=== PATIENT | female | born 1965 | race Caucasian/White ===

== ENCOUNTER 2020-04-23 11:05 | Emergency (ER) | payer SELFPAY ==
--- NOTE | 2020-04-23 12:21 | RAD REPORT ---
EXAM DESCRIPTION: Danica Parr And Haylee (2 Views)04/23/2020 12:14 pm CLINICAL HISTORY: Chest pain COMPARISON: 2017 FINDINGS: The lungs appear clear of acute infiltrate. The heart is normal size. Elevation of the ri ght hemidiaphragm unchanged IMPRESSION: No acute abnormalities displayed
--- NOTE | 2020-04-23 12:22 | RAD REPORT ---
EXAM DESCRIPTION: RAD - Humerus Right - 04/23/2020 12:14 pm CLINICAL HISTORY: Right arm pain status post fall FINDINGS: No fracture is seen
--- NOTE | 2020-04-23 12:25 | RAD REPORT ---
EXAM DESCRIPTION: RAD - Elbow Right 3 View - 04/23/2020 12:14 pm CLINICAL HISTORY: Right elbow pain status post injury FINDINGS: No fracture or dislocation is seen.
[2020-04-23] MEDS ORDERED: CODEINE 30MG/APAP 300MG TAB ONE (13:11)
--- NOTE | 2020-04-23 13:11 | EDPHYS ---
Physician Documentation [facility] Name: Alize Trinidad Age: 54 yrs Sex: Female : 1965 Arrival Date: 04/23/2020 Time: 11:06 Bed 24 Private MD: ED Physician Jose Barnes HPI: 04/23 12:55 This 54 yrs old Female presents to ER via Wheelchair with complaints of Fall pm1 Injury. 12:55 Details of fall: The patient fell from an upright position, while walking. Onset: The pm1 symptoms/episode began/occurred today. Associated injuries: The patient sustained pain to right shoulder, right upper chest, and right elbow. 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 She fell forward "like a starfish" while she was carrying a toy in her right hand. Presenting with pain to right elbow, right shoulder, and right upper chest. No headache, head injury, neck pain, LOC. 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 - Social history:: Smoking status: Patient denies any tobacco usage or history of. ROS: 12:55 Constitutional: Negative for fever, chills, and weight loss, Cardiovascular: Negative pm1 for chest pain, palpitations, and edema, Respiratory: Negative for shortness of breath, cough, wheezing, and pleuritic chest pain, Abdomen/GI: Negative for abdominal pain, nausea, vomiting, diarrhea, and constipation, Back: Negative for injury and pain. 12:55 Skin: Negative for injury, rash, and discoloration, Neuro: Negative for headache, weakness, numbness, tingling, and seizure. 12:55 MS/extremity: Positive for pain, of the right lateral anterior chest and right elbow and right shoulder, Negative for deformity. Exam: 12:55 Constitutional: This is a well developed, well nourished patient who is awake, alert, pm1 and in no acute distress. Head/Face: Normocephalic, atraumatic. Neck: Trachea midline, no thyromegaly or masses palpated, and no cervical lymphadenopathy. Supple, full range of motion without nuchal rigidity, or vertebral point tenderness. No Meningismus. 12:55 Back: No spinal tenderness. No costovertebral tenderness. Full range of motion. 12:55 Chest/axilla: Inspection: normal, Palpation: tenderness, of the anterior aspect of right upper chest, that totally reproduces the patient's complaints. 12:55 Cardiovascular: Exam negative for acute changes, Rate: normal, Rhythm: regular, Pulses: no pulse deficits are appreciated. 12:55 Respiratory: Exam negative for acute changes, respiratory distress, shortness of breath. 12:55 Abdomen/GI: Inspection: obese Palpation: abdomen is soft and non-tender, in all quadrants. 12:55 Musculoskeletal/extremity: Extremities: grossly normal except: noted in the right elbow and right shoulder: tenderness, There is no evidence of deformity, swelling. 12:55 Skin: Appearance: normal except for affected area, injury, contusion(s), that are superficial, of the proximal left lopez. 12:55 Neuro: Exam negative for acute changes, Orientation: is normal, Mentation: is normal, Motor: is normal, moves all fours, Sensation: is normal, no obvious gross deficits. Vital Signs: 11:31 BP 162 / 93; Pulse 74; Resp 16 S; Temp 97.1(TE); Pulse Ox 100% on R/A; Weight 136.08 kg ca1 (R); Height 5 ft. 5 in. (165.10 cm) (R); Pain 8/10; 13:21 BP 148 / 90; Pulse 73; Resp 16 S; Pulse Ox 100% on R/A; jd3 11:31 Body Mass Index 49.92 (136.08 kg, 165.10 cm) ca1 MDM: 12:19 Patient medically screened. pm1 13:08 Data reviewed: vital signs. Data interpreted: Pulse oximetry: on room air is 100 %. pm1 Interpretation: normal. Counseling: I had a detailed discussion with the patient and/or guardian regarding: the historical points, exam findings, and any diagnostic results supporting the discharge/admit diagnosis, radiology results, the need for outpatient follow up, a family practitioner, a orthopedic surgeon, to return to the emergency department if symptoms worsen or persist or if there are any questions or concerns that arise at home. 04/23 11:39 Order name: Humerus Right XRAY; Complete Time: 12:55 ca1 04/23 11:39 Order name: Elbow Right 3 View XRAY; Complete Time: 12:55 ca1 04/23 11:39 Order name: Chest Pa And Lat (2 Views) XRAY; Complete Time: 12:55 ca1 04/23 13:05 Order name: Sling; Complete Time: 13:09 pm1 Administered Medications: 13:00 Drug: Tylenol #3 (300 mg-30 mg) 2 tabs Route: PO; jd3 13:23 Follow up: Response: Medication administered at discharge. jd3 Disposition: 15:53 Co-signature as Attending Physician, Jose Barnes MD. rn Disposition: 04/23/20 13:10 Discharged to Home. Impression: Strain of other muscles, fascia and tendons at shoulder and upper arm level, right arm, Fall on same level from slipping, tripping and stumbling, Pain in right elbow. - Condition is Stable. - Discharge Instructions: Fall Prevention in the Home, Shoulder Pain, How to Use a Sling. - Prescriptions for Tylenol- Codeine #3 300-30 mg Oral Tablet - take 2 tablets by ORAL route every 6 hours As needed; 20 tablet. - Medication Reconciliation Form, Thank You Letter, Antibiotic Education, Prescription Opioid Use form. - Follow up: Emergency Department; When: As needed; Reason: Worsening of condition. Follow up: Private Physician; When: 2 - 3 days; Reason: Recheck today's complaints, Continuance of care, Re-evaluation by your physician. - Problem is new. - Symptoms have improved. Signatures: Dispatcher [employer] EDMS Jose Barnes MD MD rn Marinas, Patrick, RONI DRYER AND WASHER MECHANIC pm1 Chalino Okeefe RN RN jd3 Ashley Storey RN RN ca1 Corrections: (The following items were deleted from the chart) 13:12 13:10 04/23/2020 13:10 Discharged to Home. Impression: Strain of muscle(s) and pm1 tendon(s) of the rotator cuff of right shoulderFall on same level from slipping, tripping and stumbling; Pain in right elbow. Condition is Stable. Forms are Medication Reconciliation Form, Thank You Letter, Antibiotic Education, Prescription Opioid Use. Follow up: Emergency Department; When: As needed; Reason: Worsening of condition. Follow up: Private Physician; When: 2 - 3 days; Reason: Recheck today's complaints, Continuance of care, Re-evaluation by your physician. Problem is new. Symptoms have improved. pm1 13:23 13:12 04/23/2020 13:10 Discharged to Home. Impression: Strain of other muscles, fascia jd3 and tendons at shoulder and upper arm level, right armFall on same level from slipping, tripping and stumbling; Pain in right elbow. Condition is Stable. Forms are Medication Reconciliation Form, Thank You Letter, Antibiotic Education, Prescription Opioid Use. Follow up: Emergency Department; When: As needed; Reason: Worsening of condition. Follow up: Private Physician; When: 2 - 3 days; Reason: Recheck today's complaints, Continuance of care, Re-evaluation by your physician. Problem is new. Symptoms have improved. pm1
--- NOTE | 2020-04-23 13:11 | ER ---
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 C/O pain on R ca1 shoulder, R elbow, R rib cage, R wrist. Denies LOC. Denies hitting head. Coronavirus screen: Client denies travel out of the [place] in the last 14 days. At this time, the client does not indicate any symptoms associated with coronavirus-19. Ebola Screen: Patient negative for fever greater than or equal to 101.5 degrees Fahrenheit, and additional compatible Ebola Virus Disease symptoms Patient denies exposure to infectious person. Patient denies travel to an Ebola-affected area in the 21 days before illness onset. No symptoms or risks identified at this time. Initial Sepsis Screen: Does the patient meet any 2 criteria? No. Patient's initial sepsis screen is negative. Does the patient have a suspected source of infection? No. Patient's initial sepsis screen is negative. Risk Assessment: Do you want to hurt yourself or someone else? Patient reports no desire to harm self or others. Onset of symptoms was April 23, 2020. 11:31 Method Of Arrival: Wheelchair ca1 11:31 Acuity: FAVIAN 4 ca1 Triage Assessment: 11:39 General: Appears in no apparent distress. uncomfortable, Behavior is calm, cooperative, ca1 appropriate for age. Pain:. Pain: Complains of pain in R shoulder, R elbow, R wrist, R ribcage Pain currently is 9 out of 10 on a pain scale. Pain began 1 hour ago. Neuro: Level of Consciousness is awake, alert, obeys commands, Oriented to person, place, time, situation. Derm: Skin is intact, is healthy with good turgor, Skin is pink, warm \T\ dry. Musculoskeletal: Circulation, motion, and sensation intact. Capillary refill < 3 seconds. 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 - Social history:: Smoking status: Patient denies any tobacco usage or history of. Screenin:20 Abuse screen: Denies threats or abuse. Nutritional screening: No deficits noted. jd3 Tuberculosis screening: No symptoms or risk factors identified. Fall Risk Fall in past 12 months (25 points). Ambulatory Aid- None/Bed Rest/Nurse Assist (0 pts). Gait- Normal/Bed Rest/Wheelchair (0 pts) Mental Status- Oriented to own ability (0 pts). Total Cintron Fall Scale indicates Low Risk Score (25-44 pts). Fall prevention measures have been instituted. Side Rails Up X 2 Placed close to Nursing Station Frequent Obs/Assesments occuring Family Present and informed to notify staff if they need to leave bedside. Assessment: 12:19 General: Appears in no apparent distress. uncomfortable, Behavior is calm, cooperative, jd3 appropriate for age. Pain: Complains of pain in right lateral anterior chest and right arm Quality of pain is described as sharp, tender. Neuro: Level of Consciousness is awake, alert, obeys commands, Oriented to person, place, time, situation. Cardiovascular: Capillary refill < 3 seconds Patient's skin is warm and dry. Respiratory: Airway is patent Respiratory effort is even, unlabored, Respiratory pattern is regular, symmetrical, Denies cough. GI: No signs and/or symptoms were reported involving the gastrointestinal system. : No signs and/or symptoms were reported regarding the genitourinary system. EENT: No signs and/or symptoms were reported regarding the EENT system. Derm: Skin is intact, Skin is dry, Skin is normal, Skin temperature is warm. Musculoskeletal: Circulation, motion, and sensation intact. Range of motion: limited in right shoulder, right elbow and right wrist. Vital Signs: 11:31 BP 162 / 93; Pulse 74; Resp 16 S; Temp 97.1(TE); Pulse Ox 100% on R/A; Weight 136.08 kg ca1 (R); Height 5 ft. 5 in. (165.10 cm) (R); Pain 8/10; 13:21 BP 148 / 90; Pulse 73; Resp 16 S; Pulse Ox 100% on R/A; jd3 11:31 Body Mass Index 49.92 (136.08 kg, 165.10 cm) ca1 ED Course: 11:06 Patient arrived in ED. ag5 11:34 Triage completed. ca1 11:35 Arm band placed on right wrist. ca1 12:14 Humerus Right XRAY In Process Unspecified. EDMS 12:14 Elbow Right 3 View XRAY In Process Unspecified. EDMS 12:14 Chest Pa And Lat (2 Views) XRAY In Process Unspecified. EDMS 12:16 Chalino Okeefe, EMILY is Primary Nurse. jd3 12:17 Kj Olsen NP is PHCP. pm1 12:17 Jose Barnes MD is Attending Physician. pm1 12:21 Patient has correct armband on for positive identification. Bed in low position. Call jd3 light in reach. Side rails up X 1. Adult w/ patient. Pulse ox on. NIBP on. 13:21 No provider procedures requiring assistance completed. Patient did not have IV access jd3 during this emergency room visit. Administered Medications: 13:00 Drug: Tylenol #3 (300 mg-30 mg) 2 tabs Route: PO; jd3 13:23 Follow up: Response: Medication administered at discharge. jd3 Outcome: 13:10 Discharge ordered by . pm1 13:21 Discharged to home ambulatory, with family. jd3 13:21 Condition: stable 13:21 Discharge instructions given to patient, family, Instructed on discharge instructions, follow up and referral plans. medication usage, Demonstrated understanding of instructions, follow-up care, medications, Prescriptions given X 1. 13:23 Patient left the ED. jd3 Signatures: Dispatcher [employer] EDMS Kj Olsen, RONI COURT RECORDER pm1 Chalino Okeefe RN RN jd3 Acob, Cheryl, RN RN ca1 Choco Alan ag5 Corrections: (The following items were deleted from the chart) 12:20 12:19 Pain: Complains of pain in right arm Quality of pain is described as sharp, jd3 tender, jd3
[2020-04-23 13:47] VITALS: TEMP 97.1; O2SAT 100
[2020-04-23 13:48] VITALS: BP 148/90
== END 2020-04-23 13:23 | disposition home or self-care (01) ==
LOC: ER 11:05
DX: S46.811A Strain of other muscles, fascia and tendons at shoulder and upper arm level, right arm, initial encounter (principal); W01.0XXA Fall on same level from slipping, tripping and stumbling without subsequent striking against object, initial encounter; Y93.89 Activity, other specified; Y92.9 Unspecified place or not applicable; Z88.0 Allergy status to penicillin; Z88.1 Allergy status to other antibiotic agents; Z88.5 Allergy status to narcotic agent; I10 Essential (primary) hypertension
CPT/HCPCS: 71046; 99284

== ENCOUNTER 2021-04-11 18:51 | Emergency (ER) | payer SELFPAY ==
[2021-04-11 20:11] LABS: Urine Blood Negative (Negative); Urine Glucose Negative (Negative); Urine Protein Negative (Negative); Urine pH 5.5 (5.0-7.0)
[2021-04-11] MEDS ORDERED: NA CHLORIDE 0.9% 500 ML ONE (20:48)
[2021-04-11] MEDS ORDERED: MORPHINE 4 MG/ML SYR ONE ×2 (20:48→21:50)
[2021-04-11] MEDS ORDERED: ONDANSETRON 4 MG/2 ML VIAL ONE (20:48)
[2021-04-11 21:02] LABS: Absolute Lymphocytes (CBC) 3.1 K/uL (0.7-4.9); Basophils % 1.2 % (0-1.3); Hematocrit 41.8 % (36.0-45.0); MPV 7.5 fL (7.6-11.3); RBC Red Blood Cell Count 4.75 M/uL (3.86-4.86)
--- NOTE | 2021-04-11 21:31 | RAD REPORT ---
EXAM DESCRIPTION: CTAbdomen Pelvis W Contrast - 04/11/2021 9:23 pm CLINICAL HISTORY: Abdominal pain. Flank pain;Abd pain COMPARISON: CT ABD PELVIS W CONTRAST dated 01/12/2014; CT ABD PELVIS W CONTRAST dated 08/13/2012 TECHNIQUE: Biphasic CT imaging of the abdomen and pelvis was performed with 100 ml non-ionic IV cont rast. All CT scans are performed using dose optimization technique as appropriate and may include automated exposure control or mA/KV adjustment according to patient size. FINDINGS: Linear subsegmental atelectasis is present in the right lung base.Cholecystectomy clips. The liver, spleen, pancreas, adrenal glands and kidneys are within normal limits. No bowel obstruction, free air, free fluid or abscess. Appendectomy. No evidence of significant lym phadenopathy. Moderate lumbar degenerative changes. IMPRESSION: No acute intra-abdominal or pelvic finding.
[2021-04-11 22:33] LABS: Albumin 2.9 g/dL (3.4-5.0); Bilirubin Direct 0.2 mg/dL (0-0.2); Bilirubin Total 0.8 mg/dL (0.2-1.0); Potassium 3.7 mmol/L (3.5-5.1); Protein, Total 6.9 g/dL (6.4-8.2)
--- NOTE | 2021-04-11 23:08 | ER ---
Nurse's Notes [facility] [place], [place] Name: Alize Trinidad Age: 55 yrs Sex: Female : 1965 Arrival Date: 04/11/2021 Time: 18:56 Bed 8 Private MD: Diagnosis: Lower abdominal pain, unspecified Presentation: 04/11 19:10 Chief complaint: Patient states: "Lower left side pain X 1 day." Pt reports pain ld1 gradually getting worse throughout the day. Coronavirus screen: At this time, the client does not indicate any symptoms associated with coronavirus-19. Ebola Screen: No symptoms or risks identified at this time. Initial Sepsis Screen: Does the patient meet any 2 criteria? No. Patient's initial sepsis screen is negative. Does the patient have a suspected source of infection? No. Patient's initial sepsis screen is negative. Risk Assessment: Do you want to hurt yourself or someone else? Patient reports no desire to harm self or others. Onset of symptoms was April 11, 2021. 19:10 Method Of Arrival: Ambulatory ld1 19:10 Acuity: FAVIAN 3 ld1 Triage Assessment: 19:13 General: Appears in no apparent distress. uncomfortable, Behavior is calm, cooperative, ld1 appropriate for age. Pain: Complains of pain in left lower quadrant Pain does not radiate. Pain currently is 7 out of 10 on a pain scale. at worst was 10 out of 10 on a pain scale. Quality of pain is described as stabbing, throbbing, Pain began 1 day ago. Is continuous. Neuro: Level of Consciousness is awake, alert, obeys commands, Oriented to person, place, time, situation. Cardiovascular: Capillary refill < 3 seconds Patient's skin is warm and dry. Respiratory: Airway is patent Respiratory effort is even, unlabored, Respiratory pattern is regular, symmetrical. GI: Abdomen is non-distended, obese, Reports lower abdominal pain. 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 - Social history:: Smoking status: Patient denies any tobacco usage or history of. Patient/guardian denies using alcohol. Screenin:24 Abuse screen: Denies threats or abuse. Nutritional screening: No deficits noted. df1 Tuberculosis screening: No symptoms or risk factors identified. Fall Risk None identified. Assessment: 23:21 General: Appears in no apparent distress. Behavior is calm, cooperative. Pain: df1 Complains of pain in left lower quadrant Pain radiates to left mid back. Neuro: No deficits noted. Cardiovascular: No deficits noted. Respiratory: Respiratory effort is even, unlabored, Respiratory pattern is regular, symmetrical, Breath sounds are clear bilaterally. GI: Abdomen is obese, Last BM was April 11, 2021. Bowel sounds present X 4 quads. Reports lower abdominal pain. 23:23 : No deficits noted. EENT: No deficits noted. Derm: No deficits noted. df1 Musculoskeletal: No deficits noted. Vital Signs: 19:10 BP 162 / 119; Pulse 96; Resp 18; Temp 98.1(O); Pulse Ox 98% on R/A; Weight 138.35 kg; ld1 Height 5 ft. 5 in. (165.10 cm); Pain 7/10; 20:59 BP 162 / 97; Pulse 76; Resp 18; Pulse Ox 98% on R/A; as6 22:17 BP 138 / 66; Pulse 64; Resp 18; Pulse Ox 97% on R/A; df1 19:10 Body Mass Index 50.76 (138.35 kg, 165.10 cm) ld1 ED Course: 18:56 Patient arrived in ED. am2 19:12 Triage completed. ld1 19:13 Arm band placed on left wrist. ld1 19:30 Christian Peña MD is Attending Physician. mh7 20:02 Tricia Reynolds, EMILY is Primary Nurse. bs2 20:18 Urine Dipstick-Ancillary Sent. bs2 20:58 Basic Metabolic Panel Sent. bs2 20:58 CBC with Diff Sent. bs2 20:58 Hepatic Function Sent. bs2 20:58 Lipase Sent. bs2 20:58 Basic Metabolic Panel Sent. bs2 21:23 CT Abd/Pelvis - IV Contrast Only In Process Unspecified. EDMS 23:24 Patient has correct armband on for positive identification. Placed in gown. Bed in low df1 position. Call light in reach. Side rails up X 1. 23:24 No provider procedures requiring assistance completed. IV discontinued, intact, df1 bleeding controlled, No redness/swelling at site. Pressure dressing applied. Administered Medications: 20:57 Drug: Zofran (Ondansetron) 4 mg Route: IVP; Site: Other; bs2 23:20 Follow up: Response: Nausea is decreased df1 20:58 Drug: NS 0.9% 500 ml Route: IV; Rate: bolus; Site: Other; bs2 20:58 Drug: morphine 4 mg Route: IVP; Site: Other; bs2 23:20 Follow up: Response: Pain is decreased df1 22:00 Drug: morphine 4 mg Route: IVP; Site: left upper arm; df1 23:20 Follow up: Response: Pain is decreased df1 Outcome: 23:06 Discharge ordered by [facility] 23:24 Discharged to home ambulatory. df1 23:24 Condition: stable 23:24 Discharge instructions given to patient, family, Instructed on discharge instructions, follow up and referral plans. medication usage, Demonstrated understanding of instructions, follow-up care, medications, Prescriptions given X 2. 23:25 Patient left the ED. df1 Signatures: Dispatcher [employer] EDMS Yas Vicente am2 Christian Peña MD MD 7 Amara Giraldo RN RN ld1 Tricia Reynolds RN RN bs2 Nelly Barcenas df1 Miguel Car RN RN as6 Corrections: (The following items were deleted from the chart) 19:15 19:10 Pulse 96bpm; Resp 18bpm; Pulse Ox 98% RA; Temp 98.1F Oral; 138.35 kg; Height 5 ld1 ft. 5 in.; BMI: 50.7; Pain 7/10; ld1
--- NOTE | 2021-04-11 23:08 | EDPHYS ---
Physician Documentation [facility] Name: Alize Trinidad Age: 55 yrs Sex: Female : 1965 Arrival Date: 04/11/2021 Time: 18:56 Bed 8 Private MD: ED Physician Christian Peña HPI: 04/11 19:43 This 55 yrs old Female presents to ER via Ambulatory with complaints of Left mh7 side pain. 19:43 The patient presents with abdominal pain in the left lower quadrant. Onset: The mh7 symptoms/episode began/occurred last night. The symptoms radiate to the left flank. 19:43 Associated signs and symptoms: Pertinent negatives: nausea, vomiting, and diarrhea, mh7 anorexia, blood in stools, chest pain, constipation, diarrhea, dysuria, fever, headache, hematuria, nausea, palpitations, shortness of breath, vaginal discharge, vomiting, vomiting blood. 19:43 The symptoms are described as intermittent, vague, waxing/waning. Modifying factors: mh7 The symptoms are alleviated by nothing, the symptoms are aggravated by movement, touching the area. Severity of pain: At its worst the pain was moderate today, in the emergency department the pain is unchanged. 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 - Social history:: Smoking status: Patient denies any tobacco usage or history of. Patient/guardian denies using alcohol. ROS: 19:43 Constitutional: Negative for fever, chills, and weight loss, Eyes: Negative for injury, mh7 pain, redness, and discharge, ENT: Negative for injury, pain, and discharge, Neck: Negative for injury, pain, and swelling, Cardiovascular: Negative for chest pain, palpitations, and edema, Respiratory: Negative for shortness of breath, cough, wheezing, and pleuritic chest pain, : Negative for injury, bleeding, discharge, and swelling, MS/Extremity: Negative for injury and deformity, Skin: Negative for injury, rash, and discoloration, Neuro: Negative for headache, weakness, numbness, tingling, and seizure, Psych: Negative for depression, anxiety, suicide ideation, homicidal ideation, and hallucinations, Allergy/Immunology: Negative for hives, rash, and allergies, Endocrine: Negative for neck swelling, polydipsia, polyuria, polyphagia, and marked weight changes, Hematologic/Lymphatic: Negative for swollen nodes, abnormal bleeding, and unusual bruising. Exam: 19:43 Head/Face: Normocephalic, atraumatic. Eyes: Pupils equal round and reactive to light, mh7 extra-ocular motions intact. Lids and lashes normal. Conjunctiva and sclera are non-icteric and not injected. Cornea within normal limits. Periorbital areas with no swelling, redness, or edema. Neck: Trachea midline, no thyromegaly or masses palpated, and no cervical lymphadenopathy. Supple, full range of motion without nuchal rigidity, or vertebral point tenderness. No Meningismus. Chest/axilla: Normal chest wall appearance and motion. Nontender with no deformity. No lesions are appreciated. Cardiovascular: Regular rate and rhythm with a normal S1 and S2. No gallops, murmurs, or rubs. Normal PMI, no JVD. No pulse deficits. Respiratory: Lungs have equal breath sounds bilaterally, clear to auscultation and percussion. No rales, rhonchi or wheezes noted. No increased work of breathing, no retractions or nasal flaring. Skin: Warm, dry with normal turgor. Normal color with no rashes, no lesions, and no evidence of cellulitis. MS/ Extremity: Pulses equal, no cyanosis. Neurovascular intact. Full, normal range of motion. Neuro: Awake and alert, GCS 15, oriented to person, place, time, and situation. Cranial nerves II-XII grossly intact. Motor strength 5/5 in all extremities. Sensory grossly intact. Cerebellar exam normal. Normal gait. Psych: Awake, alert, with orientation to person, place and time. Behavior, mood, and affect are within normal limits. 19:43 Constitutional: The patient appears in no acute distress, alert, awake, uncomfortable. 19:43 Abdomen/GI: Inspection: obese Bowel sounds: normal, in all quadrants, Palpation: mh7 moderate abdominal tenderness, in the left lower quadrant, mass, is not appreciated, rebound tenderness, is not appreciated, voluntary guarding, is not appreciated, involuntary guarding, is not appreciated, no appreciated organomegaly, Rectal exam: the exam is deferred, because of patient request, Indicators: McBurney's point is not tender, Grande's sign is negative, Rovsing's sign is negative, Obturator sign is negative, Psoas sign is negative, Liver: no appreciated palpable abnormalities, Hernia: not appreciated. 19:43 Back: normal spinal alignment noted, CVA tenderness, that is mild, is noted on the mh7 left, vertebral tenderness, is not appreciated, muscle spasm, is not present. 19:43 : CVA tenderness, on the left. Vital Signs: 19:10 BP 162 / 119; Pulse 96; Resp 18; Temp 98.1(O); Pulse Ox 98% on R/A; Weight 138.35 kg; ld1 Height 5 ft. 5 in. (165.10 cm); Pain 7/10; 20:59 BP 162 / 97; Pulse 76; Resp 18; Pulse Ox 98% on R/A; as6 22:17 BP 138 / 66; Pulse 64; Resp 18; Pulse Ox 97% on R/A; df1 19:10 Body Mass Index 50.76 (138.35 kg, 165.10 cm) ld1 MDM: 23:05 Differential diagnosis: bowel obstruction, diverticulitis, non-specific abd pain, mh7 Pyelonephritis, Ureterolithiasis, urinary tract infection. Data reviewed: vital signs, nurses notes, old medical records, lab test result(s), CBC, electrolytes, urinalysis, EKG, radiologic studies, CT scan. Data interpreted: Pulse oximetry: on room air is 97 %. Interpretation: normal. Counseling: I had a detailed discussion with the patient and/or guardian regarding: the historical points, exam findings, and any diagnostic results supporting the discharge/admit diagnosis, the presence of at least one elevated blood pressure reading (>120/80) during this emergency department visit, lab results, radiology results, the need for outpatient follow up, to return to the emergency department if symptoms worsen or persist or if there are any questions or concerns that arise at home. Response to treatment: the patient's symptoms have resolved after treatment, the patient's blood pressure is in an acceptable range, mental status has returned to baseline, the patient no longer shows bradycardia, the patient is not short of breath, the patient is not tachycardic, the patient's pain is gone, the patient's temperature has normalized. 23:06 Patient medically screened. [facility] 04/11 19:39 Order name: Basic Metabolic Panel [facility] 04/11 19:39 Order name: CBC with Diff; Complete Time: 21:11 [facility] 04/11 19:39 Order name: Hepatic Function; Complete Time: 22:51 [facility] 04/11 19:39 Order name: Lipase; Complete Time: 22:51 [facility] 04/11 19:40 Order name: Basic Metabolic Panel; Complete Time: 22:51 [facility] 04/11 20:11 Order name: Urine Dipstick-Ancillary [facility] 04/11 19:39 Order name: IV Saline Lock; Complete Time: 20:58 [facility] 04/11 19:39 Order name: Labs collected and sent; Complete Time: 20:58 [facility] 04/11 19:41 Order name: CT Abd/Pelvis - IV Contrast Only; Complete Time: 21:54 [facility] 04/11 19:41 Order name: EKG; Complete Time: 19:42 [facility] 04/11 19:39 Order name: Urine Dipstick-Ancillary (obtain specimen); Complete Time: 20:18 [facility] 04/11 19:41 Order name: EKG - Nurse/Tech; Complete Time: 20:16 [facility] 04/11 21:06 Order name: Labs - recollect needed: green top; Complete Time: 21:49 mw2 Administered Medications: 20:57 Drug: Zofran (Ondansetron) 4 mg Route: IVP; Site: Other; bs2 23:20 Follow up: Response: Nausea is decreased df1 20:58 Drug: NS 0.9% 500 ml Route: IV; Rate: bolus; Site: Other; bs2 20:58 Drug: morphine 4 mg Route: IVP; Site: Other; bs2 23:20 Follow up: Response: Pain is decreased df1 22:00 Drug: morphine 4 mg Route: IVP; Site: left upper arm; df1 23:20 Follow up: Response: Pain is decreased df1 Disposition Summary: 04/11/21 23:06 Discharge Ordered Location: Home [facility] Problem: new [facility] Symptoms: have improved [facility] Condition: Stable [facility] Diagnosis - Lower abdominal pain, unspecified mh Followup: [facility] - With: Private Physician - When: 1 - 2 days - Reason: Worsening of condition, Recheck today's complaints, Continuance of care, Re-evaluation by your physician Discharge Instructions: - Discharge Summary Sheet [facility] - Abdominal Pain, Adult, [id number] [facility] Forms: - Medication Reconciliation Form [facility] - Thank You Letter [facility] - Antibiotic Education [facility] - Prescription Opioid Use [facility] Prescriptions: - ondansetron 4 mg Oral tablet,disintegrating - place 1 tablet by TRANSLINGUAL route every 8 hours As needed; 10 tablet; [facility] Refills: 0, Product Selection Permitted - dicyclomine 20 mg Oral Tablet - take 1 tablet by ORAL route 4 times per day As needed; 20 tablet; Refills: 0, [facility] Product Selection Permitted Signatures: Dispatcher [employer] Cody Rhodes mw2 Christian Peña MD MD 7 Amara Giraldo RN RN ld1 Tricia Reynolds RN RN bs2 Nelly Barcenas df1
[2021-04-12 00:56] VITALS: TEMP 98.1
[2021-04-12 00:59] VITALS: BP 138/66; O2SAT 97
--- NOTE | 2021-04-12 13:12 | EKG ---
Test Date: 2021-04-11 Test Time: 20:17:52 Online Marketing Coordinator: ANIYAH MEASUREMENT RESULTS: Intervals: Rate: 74 MO: 132 QRSD: 78 QT: 378 QTc: 419 [place]: P: 11 MO: 132 QRS: 45 T: 35 INTERPRETIVE STATEMENTS: Normal sinus rhythm Normal ECG Compared to ECG 02/21/2017 19:11:51 Short MO interval no longer present Electronically Signed On 04-12-21 13:10:25 CDT by Dante Schmidt
== END 2021-04-11 23:25 | disposition home or self-care (01) ==
LOC: ER 18:51
DX: R10.32 Left lower quadrant pain (principal); I10 Essential (primary) hypertension; Z88.0 Allergy status to penicillin; Z88.1 Allergy status to other antibiotic agents; Z88.5 Allergy status to narcotic agent
CPT/HCPCS: 36415; 74177; 80048; 80076; 81003; 82565; 83690; 85025; 93005; 99284; J2405; J7040; Q9967

== ENCOUNTER 2021-06-08 11:46 | Emergency (ER) | payer SELFPAY ==
[2021-06-08 18:58] LABS: Hematocrit 45.4 % (36.0-45.0); Lymphocytes % 42.1 % (15.3-44.8); MPV 7.9 fL (7.6-11.3); RBC Red Blood Cell Count 5.11 M/uL (3.86-4.86)
[2021-06-08 19:02] LABS: Protime INR 1.03
[2021-06-08 19:17] LABS: Ferritin 365.5 ng/mL (8-388)
[2021-06-08 19:19] LABS: ALT/SGPT 105 U/L (12-78); AST/SGOT 73 U/L (15-37); Albumin 3.3 g/dL (3.4-5.0); Alkaline Phosphatase 172 U/L (45-117); BUN Blood Urea Nitrogen 7 mg/dL (7-18); Bicarbonate 26 mmol/L (21-32); Bilirubin Direct 0.2 mg/dL (0-0.2); Bilirubin Total 0.6 mg/dL (0.2-1.0); Glucose Level 132 mg/dL (74-106); Magnesium 2.5 mg/dL (1.8-2.4); NT PRO-BNP 61 pg/mL (<125); Potassium 3.9 mmol/L (3.5-5.1); Protein, Total 8.1 g/dL (6.4-8.2); Sodium Level 138 mmol/L (136-145); Troponin (Emerg Dept Use Only) < 0.02 ng/mL (0.0-0.045)
--- NOTE | 2021-06-08 19:48 | RAD REPORT ---
EXAM DESCRIPTION: CT - Chest For Pe Angio - 06/08/2021 7:36 pm CLINICAL HISTORY: sob COMPARISON: 2016 TECHNIQUE: Dynamically enhanced axial 3 mm thick images of the chest were obtained during administra tion of <100> mL Isovue 370 IV contrast. Coronal and oblique reconstruction images were generated and reviewed. Exam utilizes a protocol for optimal evaluation of pulmonary arterial tree. Maximum intensity projections 3D imaging was utilized All CT scans are performed using dose optimization technique as appropriate and may include automated exposure control or mA/KV adjustment according to patient size. FINDINGS: A pulmonary embolus is not seen. A thoracic aortic aneurysm is not noted. A pleural effusion is not seen. A pericardial effusion is not seen. A lung consolidation is not present. IMPRESSION: Negative for a pulmonary embolism.
--- NOTE | 2021-06-08 19:49 | RAD REPORT ---
EXAM DESCRIPTION: Danica Single View06/08/2021 6:56 pm CLINICAL HISTORY: sob COMPARISON: 2019 FINDINGS: Chronic mild elevation right hemidiaphragm The lungs appear clear of acute infiltrate. The heart is normal size IMPRESSION: No acute abnormalities displayed
--- NOTE | 2021-06-08 21:13 | ER ---
Nurse's Notes [facility] Name: Alize Trinidad Age: 56 yrs Sex: Female : 1965 Arrival Date: 06/08/2021 Time: 11:47 Bed 9 Private MD: Diagnosis: Coronavirus infection, unspecified;Dyspnea Presentation: 06/08 12:26 Chief complaint: Patient states: SOB x2 days pt took home covid test and it was +. [place] Coronavirus screen: Vaccine status: Patient reports receiving the 2nd dose of the covid vaccine. Ebola Screen: Patient denies travel to an Ebola-affected area in the 21 days before illness onset. Initial Sepsis Screen: Does the patient meet any 2 criteria? No. Patient's initial sepsis screen is negative. Does the patient have a suspected source of infection? No. Patient's initial sepsis screen is negative. Risk Assessment: Do you want to hurt yourself or someone else? Patient reports no desire to harm self or others. Onset of symptoms was June 06, 2021. 12:26 Method Of Arrival: Ambulatory [place] 12:26 Acuity: FAVIAN 3 [place] Triage Assessment: 12:29 General: Appears in no apparent distress. Behavior is cooperative. [place] Historical: - Allergies: 12:29 Hydrocodone-Acetaminophen; [place] 12:29 Levaquin; [place] 12:29 PENICILLINS; [place] - Home Meds: 12:29 Albuterol Inhl [Active]; [place] - PMHx: 12:29 Fibromyalgia; Hypertension; Rheumatoid Arthritis; [place] - PSHx: 12:29 Appendectomy; section; Cholecystectomy; hernia surgery; hysterectomy; [place] - Immunization history:: Adult Immunizations up to date. - Social history:: Smoking status: Patient denies any tobacco usage or history of. Screenin:00 Abuse screen: Denies threats or abuse. Nutritional screening: No deficits noted. bb Tuberculosis screening: No symptoms or risk factors identified. Fall Risk None identified. Assessment: 18:52 Reassessment: EKG done, Labs initiated, pt placed back in lobby, notified of wait time, jl7 verbalized understanding. 21:00 General: Appears in no apparent distress. Behavior is calm, cooperative. Pain: Denies bb pain. Neuro: Level of Consciousness is awake, alert, obeys commands, Oriented to person, place, time, situation. Cardiovascular: Capillary refill < 3 seconds Patient's skin is warm and dry. Respiratory: Airway is patent Respiratory effort is even, unlabored. GI: No signs and/or symptoms were reported involving the gastrointestinal system. Derm: Skin is pink, warm \T\ dry. Musculoskeletal: Circulation, motion, and sensation intact. 21:30 Reassessment: Patient is alert, oriented x 3, equal unlabored respirations, skin bb warm/dry/pink. pt verbalized understanding of and agrees to plan of care discharge instructions given pt ambulated with steady gait to exit. Vital Signs: 12:26 BP 167 / 116; Pulse 80; Resp 20; Temp 98.1(O); Pulse Ox 100% ; Weight 133.81 kg; Height p[place] 5 ft. 5 in. (165.10 cm); 18:44 BP 151 / 89; Pulse 75; Resp 22; Pulse Ox 99% ; jl7 20:54 BP 152 / 78; Pulse 69; Resp 17; Temp 97.6; Pulse Ox 100% on R/A; kd3 12:26 Body Mass Index 49.09 (133.81 kg, 165.10 cm) [place] ED Course: 11:47 Patient arrived in ED. am2 12:29 Triage completed. [place] 12:29 Arm band placed on right wrist. [place] 18:40 Initial lab(s) drawn, by me, sent to lab. EKG done, by ED staff, reviewed by Gaurang Brown MD. Inserted saline lock: 20 gauge in right antecubital area, using aseptic technique. Blood collected. 18:56 XRAY Chest (1 view) In Process Unspecified. EDMS 19:36 CT Chest For PE Angio In Process Unspecified. EDMS 20:47 Christian Peña MD is Attending Physician. 7 21:00 Patient has correct armband on for positive identification. bb 21:12 Yue Thayer MD is Referral Physician. 7 21:12 Elder Dupont MD is Referral Physician. [facility] 21:30 No provider procedures requiring assistance completed. IV discontinued, intact, bb bleeding controlled, No redness/swelling at site. Pressure dressing applied. Administered Medications: No medications were administered Outcome: 21:13 Discharge ordered by . [facility] 21:30 Discharged to home ambulatory. bb 21:30 Condition: stable 21:30 Discharge instructions given to patient, Instructed on discharge instructions, follow up and referral plans. medication usage, Demonstrated understanding of instructions, follow-up care, medications, Prescriptions given X 2. 21:36 Patient left the ED. bb Signatures: Dispatcher [employer] EDMS Evonne Guerrero, RN RN bb Wilman Kim RN RN jl7 Yas Vicente Maurice, MD MD mh7 Kinza Wayne RN RN kd3 Sandra Elizabeth RN RN p[place]
--- NOTE | 2021-06-08 21:13 | EDPHYS ---
Physician Documentation [facility] Name: Alize Trinidad Age: 56 yrs Sex: Female : 1965 Arrival Date: 06/08/2021 Time: 11:47 Bed 9 Private MD: ED Physician Christian Peña HPI: 06/08 21:05 This 56 yrs old Female presents to ER via Ambulatory with complaints of covid+, mh7 Shortness Of Breath. 21:05 The patient has shortness of breath with light activity. Onset: The symptoms/episode mh7 began/occurred 2 day(s) ago. Duration: The symptoms are intermittent, with no pattern. The patient's shortness of breath is aggravated by coughing, exertion, light activity, is alleviated by sitting up. Associated signs and symptoms: Pertinent positives: productive cough, fever, Body aches, generalized fatigue, Pertinent negatives: chest pain, diaphoresis, dizziness, hemoptysis, loss of consciousness, nausea, numbness in extremities, visual changes, vomiting. Severity of symptoms: At their worst the symptoms were moderate yesterday, in the emergency department the symptoms have improved moderately. Patient reports taken a home Covid test which was positive 2 days ago.. Historical: - Allergies: 12:29 Hydrocodone-Acetaminophen; pizano 12:29 Levaquin; pizano 12:29 PENICILLINS; pizano - Home Meds: 12:29 Albuterol Inhl [Active]; pizano - PMHx: 12:29 Fibromyalgia; Hypertension; Rheumatoid Arthritis; pizano - PSHx: 12:29 Appendectomy; section; Cholecystectomy; hernia surgery; hysterectomy; pizano - Immunization history:: Adult Immunizations up to date. - Social history:: Smoking status: Patient denies any tobacco usage or history of. ROS: 21:05 Constitutional: Negative for fever, chills, and weight loss, Eyes: Negative for injury, mh7 pain, redness, and discharge, ENT: Negative for injury, pain, and discharge, Neck: Negative for injury, pain, and swelling, Cardiovascular: Negative for chest pain, palpitations, and edema, Abdomen/GI: Negative for abdominal pain, nausea, vomiting, diarrhea, and constipation, Back: Negative for injury and pain, : Negative for injury, bleeding, discharge, and swelling, MS/Extremity: Negative for injury and deformity, Skin: Negative for injury, rash, and discoloration, Neuro: Negative for headache, weakness, numbness, tingling, and seizure, Psych: Negative for depression, anxiety, suicide ideation, homicidal ideation, and hallucinations, Allergy/Immunology: Negative for hives, rash, and allergies, Endocrine: Negative for neck swelling, polydipsia, polyuria, polyphagia, and marked weight changes, Hematologic/Lymphatic: Negative for swollen nodes, abnormal bleeding, and unusual bruising. Exam: 21:05 Constitutional: This is a well developed, well nourished patient who is awake, alert, mh7 and in no acute distress. Head/Face: Normocephalic, atraumatic. Eyes: Pupils equal round and reactive to light, extra-ocular motions intact. Lids and lashes normal. Conjunctiva and sclera are non-icteric and not injected. Cornea within normal limits. Periorbital areas with no swelling, redness, or edema. Neck: Trachea midline, no thyromegaly or masses palpated, and no cervical lymphadenopathy. Supple, full range of motion without nuchal rigidity, or vertebral point tenderness. No Meningismus. Chest/axilla: Normal chest wall appearance and motion. Nontender with no deformity. No lesions are appreciated. Cardiovascular: Regular rate and rhythm with a normal S1 and S2. No gallops, murmurs, or rubs. Normal PMI, no JVD. No pulse deficits. Respiratory: Lungs have equal breath sounds bilaterally, clear to auscultation and percussion. No rales, rhonchi or wheezes noted. No increased work of breathing, no retractions or nasal flaring. Abdomen/GI: Soft, non-tender, with normal bowel sounds. No distension or tympany. No guarding or rebound. No evidence of tenderness throughout. Back: No spinal tenderness. No costovertebral tenderness. Full range of motion. Skin: Warm, dry with normal turgor. Normal color with no rashes, no lesions, and no evidence of cellulitis. MS/ Extremity: Pulses equal, no cyanosis. Neurovascular intact. Full, normal range of motion. Neuro: Awake and alert, GCS 15, oriented to person, place, time, and situation. Cranial nerves II-XII grossly intact. Motor strength 5/5 in all extremities. Sensory grossly intact. Cerebellar exam normal. Normal gait. Psych: Awake, alert, with orientation to person, place and time. Behavior, mood, and affect are within normal limits. Vital Signs: 12:26 BP 167 / 116; Pulse 80; Resp 20; Temp 98.1(O); Pulse Ox 100% ; Weight 133.81 kg; Height pizano 5 ft. 5 in. (165.10 cm); 18:44 BP 151 / 89; Pulse 75; Resp 22; Pulse Ox 99% ; jl7 20:54 BP 152 / 78; Pulse 69; Resp 17; Temp 97.6; Pulse Ox 100% on R/A; kd3 12:26 Body Mass Index 49.09 (133.81 kg, 165.10 cm) pizano MDM: 21:09 Differential diagnosis: Anemia Anxiety Reaction asthma, Bronchitis CHF exacerbation, mh7 Chronic Obstructive Pulmonary Disease Myocardial Infarction pneumonia, Pneumothorax Psychogenic pulmonary edema, Pulmonary Embolism reactive airway disease. Data reviewed: vital signs, nurses notes, lab test result(s), cardiac enzymes, CBC, electrolytes, EKG, radiologic studies, CT scan, plain films. Data interpreted: Pulse oximetry: on room air is 100 %. Interpretation: normal. Counseling: I had a detailed discussion with the patient and/or guardian regarding: the historical points, exam findings, and any diagnostic results supporting the discharge/admit diagnosis, the presence of at least one elevated blood pressure reading (>120/80) during this emergency department visit, lab results, radiology results, the need for outpatient follow up, to return to the emergency department if symptoms worsen or persist or if there are any questions or concerns that arise at home. Response to treatment: the patient's symptoms have resolved after treatment, the patient's blood pressure is in an acceptable range, mental status has returned to baseline, the patient no longer shows bradycardia, the patient is not short of breath, the patient is not tachycardic, the patient's pain is gone, the patient's temperature has normalized, patient is well hydrated. ED course: Well-appearing, no acute distress, vital signs stable, no focal neurological deficits. No chest pain, shortness of breath, nausea, vomiting, or weakness. Discussed all test results and findings with the patient and answered all of her questions. She expressed some interest in monoclonal antibody treatment. Explained to patient that she would be a candidate however we do not have that treatment available at this facility at this time. She was advised to call her local health department and [facility] department for possible locations where she can receive this treatment if desired within 10 days of symptom development.. 21:13 Patient medically screened. [facility] 06/08 18:29 Order name: Basic Metabolic Panel [facility] 06/08 18:29 Order name: CBC with Diff [facility] 06/08 18:29 Order name: LFT's; Complete Time: 20:36 [facility] 06/08 18:29 Order name: Magnesium; Complete Time: 20:36 [facility] 06/08 18:29 Order name: NT PRO-BNP; Complete Time: 20:36 [facility] 06/08 18:29 Order name: PT-INR; Complete Time: 20:36 [facility] 06/08 18:29 Order name: Troponin (emerg Dept Use Only); Complete Time: 20:36 [facility] 06/08 18:29 Order name: XRAY Chest (1 view); Complete Time: 20:36 [facility] 06/08 18:29 Order name: EKG; Complete Time: 18:30 [facility] 06/08 18:30 Order name: Basic Metabolic Panel; Complete Time: 20:36 [facility] 06/08 18:30 Order name: CBC with Automated Diff; Complete Time: 20:36 [facility] 06/08 18:44 Order name: CT Chest For PE Angio; Complete Time: 20:36 [facility] 06/08 18:44 Order name: Ferritin; Complete Time: 20:36 [facility] 06/08 18:44 Order name: CRP; Complete Time: 20:36 [facility] 06/08 18:29 Order name: Cardiac monitoring [facility] 06/08 18:29 Order name: EKG - Nurse/Tech [facility] 06/08 18:29 Order name: IV Saline Lock [facility] 06/08 18:29 Order name: Labs collected and sent [facility] 06/08 18:29 Order name: O2 Per Protocol [facility] 06/08 18:29 Order name: O2 Sat Monitoring [facility] Administered Medications: No medications were administered Disposition Summary: 06/08/21 21:13 Discharge Ordered Location: Home [facility] Problem: new [facility] Symptoms: have improved [facility] Condition: Stable [facility] Diagnosis - Coronavirus infection, unspecified 7 - Dyspnea 7 Followup: [facility] - With: Private Physician - When: 1 - 2 days - Reason: Worsening of condition, Recheck today's complaints, Continuance of care, Re-evaluation by your physician Followup: [facility] - With: Yue Thayer MD - When: 1 - 2 days - Reason: Worsening of condition, Recheck today's complaints Followup: [facility] - With: Elder Dupont MD - When: 1 - 2 days - Reason: Worsening of condition, Recheck today's complaints Discharge Instructions: - Discharge Summary Sheet [facility] - COVID-19 [facility] - COVID-19 Frequently Asked Questions [facility] - Things You Can Do to Manage Your COVID-19 Symptoms at Home - [place] [address] - COVID-19: Quarantine vs. Isolation - [place] [address] Forms: - Medication Reconciliation Form [facility] - Thank You Letter [facility] - Antibiotic Education [facility] - Prescription Opioid Use [facility] Prescriptions: - albuterol sulfate 90 mcg/actuation Inhalation HFA aerosol inhaler - inhale 2 puff by INHALATION route every 6 hours As needed; 1 Inhaler; Refills: [facility] 0, Product Selection Permitted - Tessalon Perles 100 mg Oral Capsule - take 1 capsule by ORAL route every 8 hours As needed; 15 capsule; Refills: 0, 7 Product Selection Permitted Signatures: Dispatcher [employer] Kj Ballesteros NP SPECIALIST ICU pm1 Wilman Kim RN RN 7 Christian Peña MD MD [facility] Elinor-Sandra Turcios RN RN pizano
[2021-06-08 21:55] VITALS: BP 152/78; TEMP 97.6; O2SAT 100
== END 2021-06-08 21:36 | disposition home or self-care (01) ==
LOC: ER 11:46
DX: U07.1 COVID-19 (principal); I10 Essential (primary) hypertension; R06.00 Dyspnea, unspecified; Z88.0 Allergy status to penicillin
CPT/HCPCS: 36415; 71045; 71275; 80048; 80076; 82728; 83735; 83880; 84484; 85025; 85610; 86140; 93005; 99284; Q9967

== ENCOUNTER 2022-04-22 07:26 | Emergency (ER) | payer SELFPAY ==
[2022-04-22] MEDS ORDERED: DIAZEPAM 5 MG TABLET ONE (07:47)
[2022-04-22] MEDS ORDERED: NA CHLORIDE 0.9% 1,000 ML ONE (07:48)
[2022-04-22] MEDS ORDERED: dexAMETHasone 10 MG/ML VIAL ONE (07:48)
[2022-04-22] MEDS ORDERED: ONDANSETRON 4 MG/2 ML VIAL ONE (07:48)
[2022-04-22] MEDS ORDERED: MORPHINE 4 MG/ML SYR ONE (07:48)
[2022-04-22 07:55] LABS: Absolute Lymphocytes (CBC) 2.2 K/uL (0.7-4.9); Hematocrit 44.1 % (36.0-45.0); Lymphocytes % 21.8 % (15.3-44.8); MCV 87.5 fL (80-100); MPV 7.2 fL (7.6-11.3); RBC Red Blood Cell Count 5.04 M/uL (3.86-4.86)
[2022-04-22 08:09] LABS: Potassium 4.2 mmol/L (3.5-5.1)
[2022-04-22] MEDS ORDERED: KETOROLAC 30 MG/ML INJ ONE (08:23)
--- NOTE | 2022-04-22 08:25 | RAD REPORT ---
EXAM DESCRIPTION: CT - Spine Lumbar Wo Con - 04/22/2022 8:07 am CLINICAL HISTORY: Lumbar radiculopathy, trauma COMPARISON: Abdomen Pelvis W Contrast dated 04/11/2021 TECHNIQUE: Axial noncontrast CT imaging of the lumbar spine was performed with coronal and sagittal re-formatted images. All CT scans are performed using dose optimization technique as appropriate and may include automated exposure control or mA/KV adjustment according to patient size. FINDINGS: No acute lumbar spine fracture seen. Chronic deformity of the left L3 transverse process. Transitional vertebral body. No aggressive marrow pattern or malalignment. Cholecystectomy. The verte bral body heights in joint spaces are maintained. Facet degenerative changes are present at L4-5 and L5-S1. Paraspinal tissues are normal in thickness. No paraspinal abscess or hematoma seen. Intervertebral disc disease assessment is inherently limited by CT. Within these limitations, no high -grade canal stenosis suspected. IMPRESSION: No acute fracture of the lumbar spine. Mild degenerative changes.
--- NOTE | 2022-04-22 09:22 | ER ---
Nurse's Notes [facility] Name: Alize Trinidad Age: 56 yrs Sex: Female : 1965 Arrival Date: 04/22/2022 Time: 07:29 Bed 5 Private MD: Diagnosis: Low back pain;Unspecified symptoms and signs involving the musculoskeletal system Presentation: 04/22 07:32 Chief complaint: Patient states: about two weeks ago flipped mattress and may have vg1 sprained back, states pain in mid back has become worse with rib pain and difficulty taking a deep breath. Coronavirus screen: Vaccine status: Client denies travel out of the [place] in the last 14 days. Ebola Screen: Patient negative for fever greater than or equal to 101.5 degrees Fahrenheit, and additional compatible Ebola Virus Disease symptoms Patient denies exposure to infectious person. Initial Sepsis Screen: Does the patient meet any 2 criteria? No. Patient's initial sepsis screen is negative. Does the patient have a suspected source of infection? No. Patient's initial sepsis screen is negative. Risk Assessment: Do you want to hurt yourself or someone else? Patient reports no desire to harm self or others. Onset of symptoms was April 08, 2022. 07:32 Method Of Arrival: Ambulatory vg1 07:32 Acuity: FAVIAN 3 vg1 Triage Assessment: 07:34 General: Appears uncomfortable, Behavior is cooperative, crying. Pain: Complains of vg1 pain in back Pain currently is 10 out of 10 on a pain scale. Pain began approximately 2 weeks. Neuro: Level of Consciousness is awake, alert, obeys commands, Oriented to person, place, time, situation. Musculoskeletal: Circulation, motion, and sensation intact. Denies numbness in, right arm, left arm, right leg and left leg. Historical: - Allergies: 07:34 Hydrocodone-Acetaminophen; vg1 07:34 Levaquin; vg1 07:34 PENICILLINS; vg1 - Home Meds: 07:34 Albuterol Inhl [Active]; vg1 - PMHx: 07:34 Fibromyalgia; Hypertension; Rheumatoid Arthritis; vg1 - PSHx: 07:34 Appendectomy; section; Cholecystectomy; hernia surgery; hysterectomy; vg1 - Immunization history:: Client reports receiving the 2nd dose of the Covid vaccine. - Social history:: Smoking status: Patient denies any tobacco usage or history of. - Family history:: not pertinent. Screenin:38 Abuse screen: Denies threats or abuse. Nutritional screening: No deficits noted. ll1 Tuberculosis screening: No symptoms or risk factors identified. 07:49 Fall Risk IV access (20 points). Gait- Weak (10 pts.). Total Cintron Fall Scale indicates ll1 Low Risk Score (25-44 pts). Fall prevention measures have been instituted. Side Rails Up X 2 Placed close to Nursing Station Frequent Obs/Assesments occuring As available Patient and Family Educated on Fall Prevention Program and strategies. Assessment: 08:25 Reassessment: No changes from previously documented assessment. Patient and/or family ll1 updated on plan of care and expected duration. Pain level reassessed. Patient is alert, oriented x 3, equal unlabored respirations, skin warm/dry/pink. 09:39 Reassessment: No changes from previously documented assessment. Patient and/or family ll1 updated on plan of care and expected duration. Pain level reassessed. Patient is alert, oriented x 3, equal unlabored respirations, skin warm/dry/pink. Neuro: No deficits noted. Vital Signs: 07:32 BP 196 / 88; Pulse 81; Resp 22; Temp 97.8(TE); Pulse Ox 100% on R/A; Weight 133.81 kg; vg1 Height 5 ft. 5 in. (165.10 cm); Pain 10/10; 07:34 BP 184 / 105; vg1 08:24 BP 155 / 94; Pulse 94; Resp 18; ll1 09:35 BP 143 / 80; Pulse 70; Resp 17; Pulse Ox 99% ; Pain 8/10; ll1 07:32 Body Mass Index 49.09 (133.81 kg, 165.10 cm) vg1 ED Course: 07:29 Patient arrived in ED. am2 07:29 Gaurang Brown MD is Attending Physician. [facility] 07:34 Triage completed. vg1 07:34 Arm band placed on. vg1 07:35 Patient has correct armband on for positive identification. Bed in low position. Call ll1 light in reach. Side rails up X2. Client placed on continuous cardiac and pulse oximetry monitoring. NIBP monitoring applied. 07:38 Jose, Lynsay, RN is Primary Nurse. ll1 07:38 Patient placed in an exam room, on a stretcher. ll1 07:45 Inserted saline lock: 22 gauge in right antecubital area, using aseptic technique. ll1 Blood collected. 08:08 CT Lumbar Spine Wo Con In Process Unspecified. EDMS 09:40 No provider procedures requiring assistance completed. IV discontinued, intact, ll1 bleeding controlled, No redness/swelling at site. Pressure dressing applied. Administered Medications: 07:43 Drug: NS 0.9% 1000 ml Route: IV; Rate: 1 bolus; Site: right antecubital; jl7 09:39 Follow up: Response: No adverse reaction; IV Status: Completed infusion; IV Intake: ll1 1000ml 07:43 Drug: Decadron - Dexamethasone 10 mg Route: IVP; Site: right antecubital; jl7 09:40 Follow up: Response: No adverse reaction; RASS: Alert and Calm (0) ll1 07:44 Drug: Valium (diazepam) 10 mg Route: PO; jl7 09:39 Follow up: Response: No adverse reaction; Pain is decreased; RASS: Alert and Calm (0) ll1 07:45 Drug: Zofran (Ondansetron) 4 mg Route: IVP; Site: right antecubital; jl7 09:39 Follow up: Response: No adverse reaction ll1 07:46 Drug: morphine 4 mg Route: IVP; Infused Over: 4 mins; Site: right antecubital; jl7 09:39 Follow up: Response: No adverse reaction; Pain is decreased; RASS: Alert and Calm (0) ll1 08:24 Drug: Ketorolac 30 mg Route: IVP; Site: right antecubital; jl7 09:39 Follow up: Response: No adverse reaction; Pain is decreased ll1 Medication: 07:38 VIS not applicable for this client. ll1 Intake: 09:39 IV: 1000ml; Total: 1000ml. ll1 Outcome: 09:22 Discharge ordered by . sujey 09:40 Discharged to home ambulatory. ll1 09:40 Condition: stable 09:40 Discharge instructions given to patient, Instructed on discharge instructions, follow up and referral plans. no drinking with medication, no driving heavy equipment, medication usage, Demonstrated understanding of instructions, follow-up care, medications, Prescriptions given X 4. 09:41 Patient left the ED. ll1 Signatures: Dispatcher [employer] Gaurang Smith MD MD cha Leal, Jahala, RN RN jl7 Yas Vicente am2 Breanne Spencer RN RN vg1 Leona Garcia RN RN ll1 Corrections: (The following items were deleted from the chart) 08: 08:00 NS 0.9% 1000 ml IV at 1 bolus in right antecubital [place] [id number] 08:24 08:01 Valium (diazepam) 10 mg PO [place] [id number] 08: 08:00 Decadron - Dexamethasone 10 mg IVP in right antecubital [place] [address] 08:25 08:04 morphine 4 mg IVP in right antecubital over 4 mins [place] [address] 08:25 08:02 Zofran (Ondansetron) 4 mg IVP in right antecubital [place] [address]
--- NOTE | 2022-04-22 09:22 | EDPHYS ---
Physician Documentation [facility] Name: Alize Trinidad Age: 56 yrs Sex: Female : 1965 Arrival Date: 04/22/2022 Time: 07:29 Bed 5 Private MD: ESTRADA Physician Gaurang Brown HPI: 04/22 08:53 This 56 yrs old Female presents to ER via Ambulatory with complaints of Back sujey Pain. 08:53 This 56 yrs old Female presents to ER via Ambulatory with complaints of Back sujey Pain. 08:53 The patient presents with pain that is acute, and decreased range of motion, and an sujey injury. The symptoms are located in the right mid back and right low back. Onset: The symptoms/episode began/occurred yesterday. Location: right mid back and right low back. Associated signs and symptoms: The patient has no apparent associated signs or symptoms. The problem was sustained when lifting heavy object, from twisting. Modifying factors: The patient symptoms are alleviated by nothing, remaining still, the patient symptoms are aggravated by any movement, bending. Severity of symptoms: At their worst the symptoms were moderate, in the emergency department the symptoms are unchanged. The patient has not experienced similar symptoms in the past. Historical: - Allergies: 07:34 Hydrocodone-Acetaminophen; vg1 07:34 Levaquin; vg1 07:34 PENICILLINS; vg1 - Home Meds: 07:34 Albuterol Inhl [Active]; vg1 - PMHx: 07:34 Fibromyalgia; Hypertension; Rheumatoid Arthritis; vg1 - PSHx: 07:34 Appendectomy; section; Cholecystectomy; hernia surgery; hysterectomy; vg1 - Immunization history:: Client reports receiving the 2nd dose of the Covid vaccine. - Social history:: Smoking status: Patient denies any tobacco usage or history of. - Family history:: not pertinent. ROS: 08:53 Constitutional: Negative for fever, chills, and weight loss, Eyes: Negative for injury, sujey pain, redness, and discharge, ENT: Negative for injury, pain, and discharge, Neck: Negative for injury, pain, and swelling, Cardiovascular: Negative for chest pain, palpitations, and edema, Respiratory: Negative for shortness of breath, cough, wheezing, and pleuritic chest pain, Abdomen/GI: Negative for abdominal pain, nausea, vomiting, diarrhea, and constipation, : Negative for injury, bleeding, discharge, and swelling, MS/Extremity: Negative for injury and deformity, Skin: Negative for injury, rash, and discoloration, Neuro: Negative for headache, weakness, numbness, tingling, and seizure, Psych: Negative for depression, anxiety, suicide ideation, homicidal ideation, and hallucinations, Allergy/Immunology: Negative for hives, rash, and allergies, Endocrine: Negative for neck swelling, polydipsia, polyuria, polyphagia, and marked weight changes, Hematologic/Lymphatic: Negative for swollen nodes, abnormal bleeding, and unusual bruising. 08:53 Back: Positive for injury or acute deformity, decreased range of motion, pain at rest, pain with movement, of the right mid back and right low back. Exam: 08:53 Constitutional: This is a well developed, well nourished patient who is awake, alert, sujey and in no acute distress. Head/Face: Normocephalic, atraumatic. Eyes: Pupils equal round and reactive to light, extra-ocular motions intact. Lids and lashes normal. Conjunctiva and sclera are non-icteric and not injected. Cornea within normal limits. Periorbital areas with no swelling, redness, or edema. ENT: Nares patent. No nasal discharge, no septal abnormalities noted. Tympanic membranes are normal and external auditory canals are clear. Oropharynx with no redness, swelling, or masses, exudates, or evidence of obstruction, uvula midline. Mucous membranes moist. Neck: Trachea midline, no thyromegaly or masses palpated, and no cervical lymphadenopathy. Supple, full range of motion without nuchal rigidity, or vertebral point tenderness. No Meningismus. Chest/axilla: Normal chest wall appearance and motion. Nontender with no deformity. No lesions are appreciated. Cardiovascular: Regular rate and rhythm with a normal S1 and S2. No gallops, murmurs, or rubs. Normal PMI, no JVD. No pulse deficits. Respiratory: Lungs have equal breath sounds bilaterally, clear to auscultation and percussion. No rales, rhonchi or wheezes noted. No increased work of breathing, no retractions or nasal flaring. Abdomen/GI: Soft, non-tender, with normal bowel sounds. No distension or tympany. No guarding or rebound. No evidence of tenderness throughout. Skin: Warm, dry with normal turgor. Normal color with no rashes, no lesions, and no evidence of cellulitis. MS/ Extremity: Pulses equal, no cyanosis. Neurovascular intact. Full, normal range of motion. Neuro: Awake and alert, GCS 15, oriented to person, place, time, and situation. Cranial nerves II-XII grossly intact. Motor strength 5/5 in all extremities. Sensory grossly intact. Cerebellar exam normal. Normal gait. Psych: Awake, alert, with orientation to person, place and time. Behavior, mood, and affect are within normal limits. 08:53 Back: pain, that is mild, that is moderate, ROM is painful, normal spinal alignment noted, CVA tenderness, is absent, vertebral tenderness, is not appreciated, muscle spasm, is appreciated in the left low back, left mid back, right mid back and right low back. Vital Signs: 07:32 BP 196 / 88; Pulse 81; Resp 22; Temp 97.8(TE); Pulse Ox 100% on R/A; Weight 133.81 kg; vg1 Height 5 ft. 5 in. (165.10 cm); Pain 10/10; 07:34 BP 184 / 105; vg1 08:24 BP 155 / 94; Pulse 94; Resp 18; ll1 09:35 BP 143 / 80; Pulse 70; Resp 17; Pulse Ox 99% ; Pain 8/10; ll1 07:32 Body Mass Index 49.09 (133.81 kg, 165.10 cm) vg1 MDM: 07:30 Patient medically screened. [facility] 09:15 Differential diagnosis: chronic back pain, Fatigue Obesity Osteoporosis sujey Ureterolithiasis. Data reviewed: vital signs, nurses notes, lab test result(s), radiologic studies, CT scan. Data interpreted: monitoring tech: not applicable for this patient encounter. rate is 94 beats/min, rhythm is regular, Pulse oximetry: on room air is 100 %. Counseling: I had a detailed discussion with the patient and/or guardian regarding: the historical points, exam findings, and any diagnostic results supporting the discharge/admit diagnosis, lab results, radiology results, the need for outpatient follow up, for definitive care, a family practitioner. 04/22 07:43 Order name: CBC with Diff; Complete Time: 08:52 [facility] 04/22 07:43 Order name: BMP; Complete Time: 08:52 [facility] 04/22 07:43 Order name: CT Lumbar Spine Wo Con; Complete Time: 08:52 sujey Administered Medications: 07:43 Drug: NS 0.9% 1000 ml Route: IV; Rate: 1 bolus; Site: right antecubital; jl7 09:39 Follow up: Response: No adverse reaction; IV Status: Completed infusion; IV Intake: ll1 1000ml 07:43 Drug: Decadron - Dexamethasone 10 mg Route: IVP; Site: right antecubital; jl7 09:40 Follow up: Response: No adverse reaction; RASS: Alert and Calm (0) ll1 07:44 Drug: Valium (diazepam) 10 mg Route: PO; jl7 09:39 Follow up: Response: No adverse reaction; Pain is decreased; RASS: Alert and Calm (0) ll1 07:45 Drug: Zofran (Ondansetron) 4 mg Route: IVP; Site: right antecubital; jl7 09:39 Follow up: Response: No adverse reaction ll1 07:46 Drug: morphine 4 mg Route: IVP; Infused Over: 4 mins; Site: right antecubital; jl7 09:39 Follow up: Response: No adverse reaction; Pain is decreased; RASS: Alert and Calm (0) ll1 08:24 Drug: Ketorolac 30 mg Route: IVP; Site: right antecubital; 09:39 Follow up: Response: No adverse reaction; Pain is decreased ll1 Disposition Summary: 04/22/22 09:22 Discharge Ordered Location: Home sujey Problem: new sujey Symptoms: have improved sujey Condition: Stable sujey Diagnosis - Low back pain sujey - Unspecified symptoms and signs involving the musculoskeletal system sujey Followup: sujey - With: Private Physician - When: 2 - 3 days - Reason: Recheck today's complaints, Continuance of care, Re-evaluation by your physician Discharge Instructions: - Discharge Summary Sheet sujey - Acute Back Pain, Adult sujey - Chronic Back Pain sujey - Musculoskeletal Pain sujey - Back Injury Prevention, [id number] sujey - Chronic Back Pain, [id number] sujey Forms: - Medication Reconciliation Form sujey - Thank You Letter sujey - Antibiotic Education sujey - Prescription Opioid Use sujey Prescriptions: - Ibuprofen 600 mg Oral Tablet - take 1 tablet by ORAL route every 6 hours As needed take with food; 30 tablet; sujey Refills: 0, Product Selection Permitted - Tramadol 50 mg Oral Tablet - take 1 tablet by ORAL route every 6 hours as needed; 26 tablet; Refills: 0, [facility] Product Selection Permitted - Medrol (Jigar) 4 mg Oral Tablets, Dose Pack - take 1 tablet by ORAL route as directed - follow package instructions; 1 [facility] packet; Refills: 0, Product Selection Permitted - Cyclobenzaprine 5 mg Oral Tablet - take 1 tablet by ORAL route 3 times per day As needed; 15 tablet; Refills: 0, [facility] Product Selection Permitted Signatures: Dispatcher [employer] Gaurang Smith MD MD cha Leal, Jahala RN RN jl7 Breanne Spencer RN RN vg1 Leona Garcia RN ll1 Corrections: (The following items were deleted from the chart) 09:40 07:43 Urine Dipstick-Ancillary ordered. [place] [id number]
[2022-04-22 09:47] VITALS: TEMP 97.8
[2022-04-22 09:50] VITALS: BP 143/80; O2SAT 99
== END 2022-04-22 09:41 | disposition home or self-care (01) ==
LOC: ER 07:26
DX: R29.91 Unspecified symptoms and signs involving the musculoskeletal system (principal)
CPT/HCPCS: 36415; 72131; 80048; 85025; 96361; 96374; 96375; 99284; J1100; J2405; J7030

== ENCOUNTER 2024-08-13 19:42 | Emergency (ER) | payer OTHER ==
[2024-08-13] MEDS ORDERED: DIPHENOX/ATROP SULF 1 TAB PO ONE (22:14)
[2024-08-13] MEDS ORDERED: ONDANSETRON 4 MG/2 ML VIAL ONE (22:14)
[2024-08-13] MEDS ORDERED: KETOROLAC 30 MG/ML INJ ONE (22:14)
[2024-08-13] MEDS ORDERED: NA CHLORIDE 0.9% 1,000 ML ONE (22:15)
[2024-08-13] MEDS ORDERED: FAMOTIDINE 20 MG/2 ML VIAL IV ONE (22:15)
[2024-08-13 22:49] LABS: Absolute Basophils 0.1 K/uL (0-0.5); Absolute Eosinophils 0.1 K/uL (0-0.5); Absolute Lymphocytes (CBC) 2.8 K/uL (0.7-4.9); Absolute Monocytes 0.7 K/uL (0.1-1.3); Absolute Neutrophil 6.5 K/uL (1.8-8.0); Basophils % 0.6 % (0-1.3); Eosinophils % 1.4 % (0-4.4); Hematocrit 42.7 % (36.0-45.0); Hemoglobin 15.1 g/dL (12.0-15.0); Lymphocytes % 27.4 % (15.3-44.8); MCH 30.2 pg (27.0-35.0); MCHC 35.2 g/dL (32.0-36.0); MCV 85.8 fL (80-100); MPV 8.6 fL (7.6-11.3); Monocytes % 6.7 % (3.3-12.3); Neutrophils % 63.9 % (41.7-73.7); Nucleated Red Blood Cells % 0.3 % (0-0); Platelets 261 thou/uL (152-406); RBC Red Blood Cell Count 4.98 M/uL (3.86-4.86); Red Cell Distribution Width 13.3 % (12.1-15.2)
[2024-08-13 23:13] LABS: Albumin 3.7 g/dL (3.4-5.0); Albumin/Globulin Ratio 0.8 (1.1-1.8); Anion Gap 11.5 mEq/L (5.0-15.0); Bilirubin Total 1.5 mg/dL (0.2-1.0); C-Reactive Protein 12.1 mg/L (<3.00); Globulin 4.5 g/dL (2.3-3.5); Influenza A Ag Negative; Influenza B Ag Negative; Potassium 3.5 mEq/L (3.5-5.1); Protein, Total 8.2 g/dL (6.4-8.2); SARS-CoV-2 Antigen Rapid Res Negative (Negative)
--- NOTE | 2024-08-14 00:30 | RAD REPORT ---
EXAM: CT Abdomen and Pelvis With Intravenous Contrast CLINICAL HISTORY: The patient is 59 years old and is Female; ABD PAIN TECHNIQUE: Axial computed tomography images of the abdomen and pelvis with intravenous contrast. Sagittal an d coronal reformatted images were created and reviewed. This CT exam was performed using one or more of the following dose reduction techniques: automated exposure control, adjustment of the mA a nd/or kV according to patient size, and/or use of iterative reconstruction technique. COMPARISON: CT April 11, 2021 FINDINGS: LUNG BASES: Unremarkable. No mass. No consolidation. ABDOMEN: LIVER: The liver is enlarged and mildly fatty. GALLBLADDER AND BILE DUCTS: Surgical clips are present in the right upper quadrant, consistent wi th previous cholecystectomy. PANCREAS: Mild fatty infiltration of the pancreas is noted. SPLEEN: The spleen is enlarged and homogeneous. ADRENALS: Unremarkable. No mass. KIDNEYS AND URETERS: The right kidney is duplex. The kidneys enhance symmetrically and are withou t hydronephrosis or hydroureter. No obstructing renal or ureteral calculus is seen. STOMACH AND BOWEL: Stomach is filled with fluid and air. The small bowel is normal in caliber. St ool is present throughout the colon. Scattered colonic diverticula are noted without surrounding inflammation. There is no mucosal thickening or evidence of obstruction. PELVIS: APPENDIX: The appendix is surgically absent. BLADDER: The bladder is moderately distended. REPRODUCTIVE: The patient is status post hysterectomy. ABDOMEN and PELVIS: INTRAPERITONEAL SPACE: Unremarkable. No free air. No significant fluid collection. BONES/JOINTS: No acute fracture. SOFT TISSUES: The soft tissues are normal. VASCULATURE: Unremarkable. No abdominal aortic aneurysm. LYMPH NODES: Unremarkable. No enlarged lymph nodes. IMPRESSION: No acute findings on this contrasted CT of the abdomen and pelvis to explain the patient's symptoms . Electronically signed by: Anna Barrios MD 08/14/2024 12:25 AM [facility] Due to temporary technical issues with the PACS/Kid[employer] reporting system, reports are being natalia d by the in-house radiologist without review as a courtesy to ensure prompt reporting the interpreting radiologist is fully responsible for the content of the report. Transcribed Date/Time: 08/14/2024 12:29 AM
--- NOTE | 2024-08-14 01:58 | EDPHYS ---
Physician Documentation [facility] Name: Alize Trinidad Age: 59 yrs Sex: Female : 1965 Arrival Date: 08/13/2024 Time: 19:42 Bed DIS6 Private MD: ED Physician Cody Pacheco HPI: 08/13 20:08 This 59 yrs old Female presents to ER via Unassigned with complaints of sp4 Abdominal Pain, High Blood Pressure, General Weakness. 08/14 05:45 59-year-old female presents with elevated blood pressure generalized weakness and sp4 abdominal pain.. Historical: - Allergies: 08/13 20:26 Hydrocodone-Acetaminophen; jj7 20:26 Levaquin; jj7 20:26 PENICILLINS; jj7 - PMHx: 20:26 Fibromyalgia; Hypertension; Rheumatoid Arthritis; jj7 - PSHx: 20:26 Appendectomy; section; section; Cholecystectomy; hernia surgery; jj7 hysterectomy; Oophorectomy; - Immunization history:: Adult Immunizations up to date. - Infectious Disease History:: Denies. - Social history:: Smoking status: Patient denies any tobacco usage or history of. Patient/guardian denies using alcohol, street drugs, IV drugs. - Family history:: not pertinent. ROS: 08/14 05:45 Constitutional: Negative for fever, chills, and weight loss, positive for diarrhea, sp4 positive generalized weakness, positive abdominal pain. All other systems are negative, Exam: 05:45 Constitutional: This is a well developed, well nourished patient who is awake, alert, sp4 and in no acute distress. Head/Face: Normocephalic, atraumatic. Eyes: Pupils equal round and reactive to light, extra-ocular motions intact. Lids and lashes normal. Conjunctiva and sclera are not injected. Cornea within normal limits. Periorbital areas with no swelling, redness, or edema. ENT: Nares patent. No nasal discharge, no septal abnormalities noted. Tympanic membranes are normal and external auditory canals are clear. Oropharynx with no redness, swelling, or masses, exudates, or evidence of obstruction, uvula midline. Mucous membranes moist. Neck: Trachea midline, no thyromegaly or masses palpated, and no cervical lymphadenopathy. Supple, full range of motion without nuchal rigidity, or vertebral point tenderness. Chest/axilla: Normal chest wall appearance and motion. Nontender with no deformity. No lesions are appreciated. Cardiovascular: Regular rate and rhythm with a normal S1 and S2. No gallops, murmurs, or rubs. Normal PMI, no JVD. No pulse deficits. Respiratory: Lungs have equal breath sounds bilaterally, clear to auscultation and percussion. No rales, rhonchi or wheezes noted. No increased work of breathing, no retractions or nasal flaring. Abdomen/GI: Soft, with normal bowel sounds. No distension or tympany. No guarding or rebound. No evidence of tenderness throughout. Back: No spinal tenderness. No costovertebral tenderness. Skin: Warm, dry with normal turgor. Normal color with no rashes, no lesions, and no evidence of cellulitis. MS/ Extremity: Pulses equal, no cyanosis. Neurovascular intact. Full, normal range of motion. Neuro: Awake and alert, GCS 15, oriented to person, place, time, and situation. Cranial nerves II-XII grossly intact. Motor strength 5/5 in all extremities. Sensory grossly intact. Psych: Awake, alert, with orientation to person, place and time. Behavior, mood, and affect are within normal limits Vital Signs: 08/13 20:22 BP 162 / 87; Pulse 73; Resp 18; Temp 97.5; Pulse Ox 100% ; Weight 130.63 kg; Height 5 jj7 ft. 5 in. ; Pain 8/10; 21:00 BP 156 / 73; Pulse 65; Resp 19; Pulse Ox 100% ; ay 22:00 BP 130 / 59; Pulse 61; Resp 17; Pulse Ox 100% on R/A; ay 23:00 BP 132 / 60; Pulse 57; Resp 18; Pulse Ox 99% on R/A; ay 08/14 00:00 BP 142 / 62; Pulse 60; Resp 19; Pulse Ox 98% ; ay 01:00 BP 136 / 59; Pulse 59; Resp 20; Pulse Ox 100% ; ay 02:00 BP 138 / 65; Pulse 61; Resp 16; Pulse Ox 100% ; ay 08/13 20:22 Body Mass Index 47.93 (130.63 kg, 165.1 cm) [facility] 08/13 20:22 Pain Scale: Adult jj7 Angel Luis Coma Score: 05:45 Eye Response: spontaneous(4). Motor Response: obeys commands(6). Verbal Response: sp4 oriented(5). Total: 15. MDM: 08/13 20:09 Medical Screening Exam initiated sp4 08/14 01:56 ED course: EXAM: CTAbdomen and Pelvis With Intravenous Contrast CLINICAL HISTORY: The sp4 patient is 59 years old and is Female; ABD PAIN TECHNIQUE: Axial computed tomography images of the abdomen and pelvis with intravenous contrast. Sagittal and coronal reformatted images were created and reviewed. This CT exam was performed using one or more of the following dose reduction techniques: automated exposure control, adjustment of the mA and/or kV according to patient size, and/or use of iterative reconstruction technique. COMPARISON: CT April 11, 2021 FINDINGS: LUNG BASES: Unremarkable. No mass. No consolidation. ABDOMEN: LIVER: The liver is enlarged and mildly fatty. GALLBLADDER AND BILE DUCTS: Surgical clips are present in the right upper quadrant, consistent with previous cholecystectomy. PANCREAS: Mild fatty infiltration of the pancreas is noted. SPLEEN: The spleen is enlarged and homogeneous. ADRENALS: Unremarkable. No mass. KIDNEYS AND URETERS: The right kidney is duplex. The kidneys enhance symmetrically and are without hydronephrosis or hydroureter. No obstructing renal or ureteral calculus is seen. STOMACH AND BOWEL: Stomach is filled with fluid and air. The small bowel is normal in caliber. Stool is present throughout the colon. Scattered colonic diverticula are noted without surrounding inflammation. There is no mucosal thickening or evidence of obstruction. PELVIS: APPENDIX: The appendix is surgically absent. BLADDER: The bladder is moderately distended. REPRODUCTIVE: The patient is status post hysterectomy. ABDOMEN and PELVIS: INTRAPERITONEAL SPACE: Unremarkable. No free air. No significant fluid collection. BONES/JOINTS: No acute fracture. SOFT TISSUES: The soft tissues are normal. VASCULATURE: Unremarkable. No abdominal aortic aneurysm. LYMPH NODES: Unremarkable. No enlarged lymph nodes. IMPRESSION: No acute findings on this contrasted CT of the abdomen and pelvis to explain the patient's symptoms.. 05:45 Differential diagnosis: hypertensive crisis, Malignant HTN, Acute diarrheal illness. sp4 Data reviewed: vital signs, nurses notes, old medical records, lab test result(s), radiologic studies, CT scan. Consideration of Admission/Observation Escalation of care including admission/observation considered. ED course: CT today is normal. Patient stable for discharge home. 08/13 20:42 Order name: CBC with Diff; Complete Time: 00:35 sp4 08/13 20:42 Order name: CMP; Complete Time: 00:35 sp4 08/13 20:42 Order name: Lipase; Complete Time: 00:35 sp4 08/13 20:43 Order name: CRP; Complete Time: 00:35 sp4 08/13 20:43 Order name: COVID-19 Ag + Flu A+B Ag; Complete Time: 00:35 sp4 08/13 20:42 Order name: CT Abd/Pelvis - IV Contrast Only; Complete Time: 00:35 sp4 08/13 20:42 Order name: IV Saline Lock; Complete Time: 22:30 sp4 08/13 20:42 Order name: Labs collected and sent; Complete Time: 22:45 sp4 Administered Medications: 08/13 22:29 Drug: Famotidine IVP 20 mg IVP once; dilute with 10 mL 0.9% NaCl; give over 2 minutes ay Route: IVP; Site: right antecubital; 23:39 Follow up: Response: No adverse reaction ay 22:29 Drug: NS 0.9% IV 1000 ml IV at 1 bolus Per protocol; to be given as a bolus over 60 ay minutes Route: IV; Rate: 1 bolus; Site: right antecubital; 08/14 02:00 Follow up: IV Status: Completed infusion ay 08/13 22:29 Drug: Diphenoxylate-Atropine PO 2 tabs PO once Route: PO; ay 23:39 Follow up: Response: No adverse reaction ay 22:30 Drug: TORadol - Ketorolac IVP 15 mg IVP once Route: IVP; Site: right antecubital; ay 23:39 Follow up: Response: No adverse reaction ay 22:30 Drug: Ondansetron IVP 4 mg IVP once; over 2 minutes Route: IVP; Site: right antecubital;ay 23:39 Follow up: Response: No adverse reaction ay Disposition: 08/14 05:45 Chart complete. sp4 Disposition Summary: 08/14/24 01:58 Discharge Ordered Notes: Location: Home sp4 Problem: new sp4 Symptoms: have improved sp4 Condition: Stable sp4 Diagnosis - Acute viral gastroenteritis sp4 Followup: sp4 - With: Private Physician - When: 7 - 10 days - Reason: Recheck today's complaints Discharge Instructions: - Discharge Summary Sheet sp4 - Viral Gastroenteritis, Adult, [id number] sp4 - Clear Liquid Diet, Adult, [id number] sp4 Forms: - Patient Portal Instructions sp4 Prescriptions: - Lomotil 2.5-0.025 mg Oral tablet - take 1 tablet ORAL route every 6 hours As needed; 30 tablet; Refills: 0, sp4 Product Selection Permitted - dicyclomine 20 mg Oral tablet - take 2 tablets ORAL route every 6 hours PRN diarrhea; 30 tablet; Refills: 0, sp4 Product Selection Permitted - ondansetron 8 mg Oral Tablet,disintegrating - take 1 tablet ORAL route every 8 hours PRN nausea; 30 tablet; Refills: 0, sp4 Product Selection Permitted Signatures: Dispatcher [employer] EDMariya Trevino RN RN jj7 Cody Pacheco MD MD sp4 Shantel Saldaña RN EMILY ay Corrections: (The following items were deleted from the chart) 08/13 20:27 20:26 PSHx: Oophorectomy; jj7 jj7 20:43 20:43 Abdomen Pelvis W Con+CT.RAD.BRZ ordered. EDMS EDMS 20:43 20:43 C-REACTIVE PROTEIN+C.LAB.BRZ ordered. EDMS EDMS 20:43 20:43 COVID-19 Ag + Flu A+B Ag+I.LAB.BRZ ordered. EDMS EDMS
--- NOTE | 2024-08-14 01:58 | ER ---
Nurse's Notes [facility] Name: Alize Trinidad Age: 59 yrs Sex: Female : 1965 Arrival Date: 08/13/2024 Time: 19:42 Bed DIS6 Private MD: Diagnosis: Acute viral gastroenteritis Presentation: 08/13 20:22 Chief complaint: Patient states: WAS AT HER PCP TODAY AND WAS SENT OVER HERE FOR HTN jj7 AND ABD PAIN. HAS BEEN SICK FOR 2 WKS. CAN'T KEEP ANYTHING IN. HAS DIARRHEA AND NAUSEA. Coronavirus screen: At this time, the client does not indicate any symptoms associated with coronavirus-19. Ebola Screen: No symptoms or risks identified at this time. Initial Sepsis Screen: Does the patient meet any 2 criteria? No. Patient's initial sepsis screen is negative. Does the patient have a suspected source of infection? No. Patient's initial sepsis screen is negative. Risk Assessment: Do you want to hurt yourself or someone else? Patient reports no desire to harm self or others. 20:22 Method Of Arrival: Ambulatory 7 20:22 Acuity: FAVIAN 3 jj7 Triage Assessment: 20:26 General: Appears in no apparent distress. comfortable, Behavior is calm, cooperative, jj7 appropriate for age. Pain: Complains of pain in right upper quadrant Pain radiates to back. GI: Reports upper abdominal pain, diarrhea, nausea. Historical: - Allergies: 20:26 Hydrocodone-Acetaminophen; jj7 20:26 Levaquin; jj7 20:26 PENICILLINS; jj7 - PMHx: 20:26 Fibromyalgia; Hypertension; Rheumatoid Arthritis; jj7 - PSHx: 20:26 Appendectomy; section; section; Cholecystectomy; hernia surgery; jj7 hysterectomy; Oophorectomy; - Immunization history:: Adult Immunizations up to date. - Infectious Disease History:: Denies. - Social history:: Smoking status: Patient denies any tobacco usage or history of. Patient/guardian denies using alcohol, street drugs, IV drugs. - Family history:: not pertinent. Screenin:00 [facility] ED Fall Risk Assessment (Adult) History of falling in the last 3 months, ay including since admission No falls in past 3 months (0 pts) Confusion or Disorientation No (0 pts) Intoxicated or Sedated No (0 pts) Impaired Gait No (0 pts) Mobility Assist Device Used No (0 pt) Altered Elimination No (0 pt) Score/Fall Risk Level 0 - 2 = Low Risk Oriented to surroundings, Maintained a safe environment, Educated pt \T\ family on fall prevention, incl call for assistance when getting out of bed. Abuse screen: Denies threats or abuse. Nutritional screening: No deficits noted. Tuberculosis screening: No symptoms or risk factors identified. Assessment: 21:00 General: Appears in no apparent distress. uncomfortable, Behavior is calm, cooperative. ay Pain: Complains of pain in abdomen and right upper quadrant Pain currently is 8 out of 10 on a pain scale. Neuro: Level of Consciousness is awake, alert, obeys commands, Oriented to person, place, time, situation, Speech is normal. Cardiovascular: Denies chest pain, shortness of breath, Capillary refill < 3 seconds. Respiratory: Airway is patent Respiratory effort is even, unlabored, Respiratory pattern is regular, symmetrical. GI: Bowel sounds present X 4 quads. Abd is soft X 4 quads Guarding noted in right upper quadrant. GI: Reports diarrhea, epigastric pain. : No signs and/or symptoms were reported regarding the genitourinary system. EENT: No signs and/or symptoms were reported regarding the EENT system. Derm: No signs and/or symptoms reported regarding the dermatologic system. Vital Signs: 20:22 BP 162 / 87; Pulse 73; Resp 18; Temp 97.5; Pulse Ox 100% ; Weight 130.63 kg; Height 5 jj7 ft. 5 in. ; Pain 8/10; 21:00 BP 156 / 73; Pulse 65; Resp 19; Pulse Ox 100% ; ay 22:00 BP 130 / 59; Pulse 61; Resp 17; Pulse Ox 100% on R/A; ay 23:00 BP 132 / 60; Pulse 57; Resp 18; Pulse Ox 99% on R/A; ay 08/14 00:00 BP 142 / 62; Pulse 60; Resp 19; Pulse Ox 98% ; ay 01:00 BP 136 / 59; Pulse 59; Resp 20; Pulse Ox 100% ; ay 02:00 BP 138 / 65; Pulse 61; Resp 16; Pulse Ox 100% ; ay 08/13 20:22 Body Mass Index 47.93 (130.63 kg, 165.1 cm) [facility] 08/13 20:22 Pain Scale: Adult [facility] Angel Luis Coma Score: 05:45 Eye Response: spontaneous(4). Motor Response: obeys commands(6). Verbal Response: sp4 oriented(5). Total: 15. ED Course: 08/13 19:44 Patient arrived in ED. im 20:08 Cody Pacheco MD is Attending Physician. sp4 20:26 Triage completed. j7 20:26 Arm band placed on left wrist. j7 20:44 Radiology exam delayed due to lab results not completed at this time. (BUN/Creatinine) jc4 IV insertion attempt and/or patient not having appropriate IV at this time. 21:00 Inserted saline lock: 22 gauge in right antecubital area, using aseptic technique. ay 22:10 Shantel Saldaña, RN is Primary Nurse. ay 22:44 COVID-19 Ag + Flu A+B Ag Sent. ay 22:45 Lipase Sent. ay 22:45 CMP Sent. ay 22:45 CBC with Diff Sent. ay 22:45 CRP Sent. ay 23:38 CT Abd/Pelvis - IV Contrast Only In Process Unspecified. EDMS 08/14 02:00 IV discontinued, intact, bleeding controlled, No redness/swelling at site. Pressure ay dressing applied. Administered Medications: 08/13 22:29 Drug: Famotidine IVP 20 mg IVP once; dilute with 10 mL 0.9% NaCl; give over 2 minutes ay Route: IVP; Site: right antecubital; 23:39 Follow up: Response: No adverse reaction ay 22:29 Drug: NS 0.9% IV 1000 ml IV at 1 bolus Per protocol; to be given as a bolus over 60 ay minutes Route: IV; Rate: 1 bolus; Site: right antecubital; 08/14 02:00 Follow up: IV Status: Completed infusion ay 08/13 22:29 Drug: Diphenoxylate-Atropine PO 2 tabs PO once Route: PO; ay 23:39 Follow up: Response: No adverse reaction ay 22:30 Drug: TORadol - Ketorolac IVP 15 mg IVP once Route: IVP; Site: right antecubital; ay 23:39 Follow up: Response: No adverse reaction ay 22:30 Drug: Ondansetron IVP 4 mg IVP once; over 2 minutes Route: IVP; Site: right antecubital;ay 23:39 Follow up: Response: No adverse reaction ay Outcome: 08/14 01:58 Discharge ordered by . mariam 02:40 Discharged to home ambulatory, ay 02:40 Condition: stable 02:40 Discharge instructions given to patient, Instructed on discharge instructions, follow up and referral plans. Demonstrated understanding of instructions, follow-up care, medications, Prescriptions given X 3, 03:06 Patient left the ED. ay Signatures: Dispatcher [employer] EDMariya Trevino RN RN jCody Cartagena MD MD sp4 [place] Justin jc4 Shantel Saldaña RN RN ay Corrections: (The following items were deleted from the chart) 08/13 20:27 20:26 PSHx: Oophorectomy; jj7 jj7
[2024-08-14 03:11] VITALS: TEMP 97.5
[2024-08-14 03:17] VITALS: O2SAT 100
[2024-08-14 03:18] VITALS: BP 138/65
== END 2024-08-14 03:06 | disposition home or self-care (01) ==
LOC: ER 19:42
DX: A08.4 Viral intestinal infection, unspecified (principal); Z11.52 Encounter for screening for COVID-19
CPT/HCPCS: 96361; 85025; 36415; 83690; 80053; 86140; 74177; 96375; 96374; 99284; 87428; Q9967; J2405; J7030

== ENCOUNTER 2024-10-16 17:42 | Emergency (ER) | payer OTHER ==
[2024-10-16] MEDS ORDERED: dexAMETHasone 10 MG/ML VIAL ONE (19:14)
[2024-10-16] MEDS ORDERED: ONDANSETRON 4 MG (ODT) TAB ONE (19:14)
[2024-10-16] MEDS ORDERED: CODEINE 30MG/APAP 300MG TAB ONE (19:15)
[2024-10-16] MEDS ORDERED: GABAPENTIN 300 MG CAP ONE (21:22)
[2024-10-16] MEDS ORDERED: KETOROLAC 30 MG/ML INJ ONE (21:23)
[2024-10-16] MEDS ORDERED: MORPHINE 4 MG/ML SYR ONE (21:23)
--- NOTE | 2024-10-16 22:07 | RAD REPORT ---
EXAM: CT PELVIS WITHOUT CONTRAST HISTORY: r hip pain/ r groin pain COMPARISON: None TECHNIQUE: Multiple contiguous axial images were obtained and a CT of the pelvis with IV contrast. Sa gittal and coronal reformats were performed. One or more of the following dose reduction techniques were used: Automated exposure control, adjustment of the mA and/or kV according to patient size, and/ or iterative reconstruction. FINDINGS: No pelvic fractures are seen. No fracture of either proximal femur is seen. Facet hypertrop hy with lower lumbar degenerative spondylosis. Prominent sigmoid diverticulosis coli without diverticulitis.. No pelvic free fluid, lymphadenopathy or mass. The soft tissues surrounding the pelvis are unremarkable. No soft tissue mass or hematoma. IMPRESSION: No acute or pathologic pelvic finding. Electronically signed by: Shayne Hastings MD 10/16/2024 07:31 PM CDT Due to temporary technical issues with the PACS/[facility] SL reporting system, reports are being natalia d by the in-house radiologist without review as a courtesy to ensure prompt reporting the interpreting radiologist is fully responsible for the content of the report. Transcribed Date/Time: 10/16/2024 10:07 PM
--- NOTE | 2024-10-16 22:11 | ER ---
Nurse's Notes [facility] Name: Alize Trinidad Age: 59 yrs Sex: Female : 1965 Arrival Date: 10/16/2024 Time: 17:42 Bed 12 Private MD: Diagnosis: Pain in right hip Presentation: 10/16 18:13 Chief complaint: Patient states: right hip pain radiating into groin X 3 days, no iw injury, did not fall, no urinary s/s. Coronavirus screen: At this time, the client does not indicate any symptoms associated with coronavirus-19. Ebola Screen: No symptoms or risks identified at this time. Initial Sepsis Screen: Does the patient meet any 2 criteria? No. Patient's initial sepsis screen is negative. Does the patient have a suspected source of infection?. Risk Assessment: Do you want to hurt yourself or someone else? Patient reports no desire to harm self or others. Onset of symptoms was October 13, 2024. 18:13 Method Of Arrival: Ambulatory iw 18:13 Acuity: FAVIAN 3 iw Historical: - Allergies: 18:14 Levaquin; iw 18:14 PENICILLINS; iw 18:14 Hydrocodone-Acetaminophen; iw - Home Meds: 18:15 valsartan-hydrochlorothiazide 160-12.5 mg oral tablet daily [Active]; iw - PMHx: 18:14 Fibromyalgia; Hypertension; Rheumatoid Arthritis; iw - PSHx: 18:14 section; Appendectomy; section; Cholecystectomy; hernia surgery; iw hysterectomy; Oophorectomy; - Immunization history:: Adult Immunizations unknown. - Infectious Disease History:: Denies. - Social history:: Smoking status: unknown. Screenin:08 [facility] ED Fall Risk Assessment (Adult) History of falling in the last 3 months, kj2 including since admission No falls in past 3 months (0 pts) Confusion or Disorientation No (0 pts) Intoxicated or Sedated No (0 pts) Impaired Gait Yes (1 pt) Mobility Assist Device Used Yes (1 pt) Altered Elimination No (0 pt) Score/Fall Risk Level 0 - 2 = Low Risk Maintained a safe environment, Hourly rounding (assess needs \T\ fall precautionary measures) done. Abuse screen: Denies threats or abuse. Denies injuries from another. Nutritional screening: No deficits noted. Tuberculosis screening: No symptoms or risk factors identified. Assessment: 19:06 General: Appears in no apparent distress. Behavior is calm, cooperative. Pain: bob2 Complains of pain in right hip Pain currently is 8 out of 10 on a pain scale. Neuro: Level of Consciousness is awake, alert, obeys commands, Oriented to person, place, time, situation. Cardiovascular: Patient's skin is warm and dry. Respiratory: Airway is patent Respiratory effort is unlabored. GI: No signs and/or symptoms were reported involving the gastrointestinal system. : No signs and/or symptoms were reported regarding the genitourinary system. 19:22 Reassessment: Patient appears in no apparent distress at this time. Patient and/or kj2 family updated on plan of care and expected duration. Pain level reassessed. Patient is alert, oriented x 3, equal unlabored respirations, skin warm/dry/pink. 20:30 Reassessment: Patient appears in no apparent distress at this time. Patient and/or kj2 family updated on plan of care and expected duration. Pain level reassessed. Patient is alert, oriented x 3, equal unlabored respirations, skin warm/dry/pink. 21:32 Reassessment: Patient appears in no apparent distress at this time. Patient and/or kj2 family updated on plan of care and expected duration. Pain level reassessed. Patient is alert, oriented x 3, equal unlabored respirations, skin warm/dry/pink. 22:18 Reassessment: Patient appears in no apparent distress at this time. Patient and/or kj2 family updated on plan of care and expected duration. Pain level reassessed. Patient is alert, oriented x 3, equal unlabored respirations, skin warm/dry/pink. Vital Signs: 18:14 BP 157 / 104; Pulse 73; Resp 16; Pulse Ox 100% on R/A; Weight 131.54 kg; Height 5 ft. 5 iw in. ; Pain 8/10; 19:22 BP 155 / 80; Pulse 68; Resp 20; Pulse Ox 100% ; kj2 21:31 BP 140 / 73; Pulse 64; Resp 20; Temp 98; Pulse Ox 100% ; kj2 22:18 BP 138 / 74; Pulse 68; Resp 20; Temp 98; Pulse Ox 100% on R/A; kj2 18:14 Body Mass Index 48.26 (131.54 kg, 165.1 cm) iw 18:14 Pain Scale: Adult iw ED Course: 18:06 Patient arrived in ED. cj3 18:08 Liza Alvares PA-C is PHCP. sb4 18:08 Selvin Parra DO is Attending Physician. sb4 18:14 Triage completed. iw 19:01 CT Pelvis wo Cont In Process Unspecified. EDMS 19:05 Lianne Ferrera, RN is Primary Nurse. kj2 19:09 Arm band placed on Patient placed in an exam room. kj2 19:09 Patient has correct armband on for positive identification. Bed in low position. Call kj2 light in reach. Provided Education on: call light. 22:10 Mu Mitchell MD is Referral Physician. sb4 22:20 No provider procedures requiring assistance completed. Patient did not have IV access kj2 during this emergency room visit. Administered Medications: 19:22 Drug: Acetaminophen-Codeine PO (300 mg-30 mg) 2 tabs PO once; RASS on ADMIN: Combtv4, kj2 Very Agttd3, Agttd2, Rstlss1, AlertClm0, Drwsy-1, Lt Sdtn-2, Mod Sdtn-3, Dp Sdtn-4, UnArsble-5 Route: PO; 22:22 Follow up: Response: No adverse reaction kj2 19:22 Drug: Ondansetron Oral Disintegrating Tablet Oral Disintegrating Tablet 4 mg PO once kj2 Route: PO; 22:22 Follow up: Response: No adverse reaction kj2 19:22 Drug: Dexamethasone IM 10 mg IM once Route: IM; Site: right deltoid; kj2 22:22 Follow up: Response: No adverse reaction kj2 21:33 Drug: morphine IM 4 mg IM once Route: IM; Site: left deltoid; kj2 22:22 Follow up: Response: No adverse reaction kj2 21:33 Drug: Ketorolac IM 30 mg IM once Route: IM; Site: right deltoid; kj2 22:21 Follow up: Response: No adverse reaction kj2 21:33 Drug: Gabapentin PO 300 mg PO once Route: PO; kj2 22:21 Follow up: Response: No adverse reaction kj2 Medication: 19:09 VIS not applicable for this client. kj2 Outcome: 22:10 Discharge ordered by . sb4 22:20 Discharged to home ambulatory, kj2 22:20 Condition: stable 22:20 Discharge instructions given to patient, family, Instructed on discharge instructions, follow up and referral plans. Demonstrated understanding of instructions, follow-up care, medications, Prescriptions given X 3, 22:32 Patient left the ED. kj2 Signatures: Dispatcher [employer] EDElaina Rosen, EMILY RN Liza Back, PA-C PA-C shine4 Lianne Ferrera RN RN kj2 Lakshmi Castelan cj3 Corrections: (The following items were deleted from the chart) 18:16 18:14 BP 157 / 104; Pulse 73bpm; Resp 16bpm; Pulse Ox 100% RA; fabby sequeira
--- NOTE | 2024-10-16 22:11 | EDPHYS ---
Physician Documentation [facility] Name: Alize Trinidad Age: 59 yrs Sex: Female : 1965 Arrival Date: 10/16/2024 Time: 17:42 Bed 12 Private MD: ED Physician Selvin Parra HPI: 10/16 18:54 This 59 yrs old Female presents to ER via Ambulatory with complaints of Hip Pain - RT. sb4 18:54 Patient reports right sided hip pain that radiates into her groin. She denies any sb4 injury to the area. Denies any underlying issues with her hip. States that she cannot get comfortable in any position. States that she has been taking Tylenol and ibuprofen without significant relief in symptoms. No numbness or tingling. Historical: - Allergies: 18:14 Levaquin; iw 18:14 PENICILLINS; iw 18:14 Hydrocodone-Acetaminophen; iw - Home Meds: 18:15 valsartan-hydrochlorothiazide 160-12.5 mg oral tablet daily [Active]; iw - PMHx: 18:14 Fibromyalgia; Hypertension; Rheumatoid Arthritis; iw - PSHx: 18:14 section; Appendectomy; section; Cholecystectomy; hernia surgery; iw hysterectomy; Oophorectomy; - Immunization history:: Adult Immunizations unknown. - Infectious Disease History:: Denies. - Social history:: Smoking status: unknown. ROS: 19:11 Constitutional: Negative for fever, chills, and weight loss, sb4 19:11 MS/extremity: Positive for decreased range of motion, pain, tenderness, of the right femoral area and right hip, 19:11 All other systems are negative, Exam: 19:11 Head/Face: Normocephalic, atraumatic. Eyes: Extra-ocular motions intact. Periorbital sb4 areas with no swelling, redness, or edema. ENT: Mucous membranes moist. Respiratory: No increased work of breathing, no retractions or nasal flaring. Skin: Warm, dry with normal turgor. Normal color with no rashes, no lesions, and no evidence of cellulitis. 19:11 Constitutional: The patient appears alert, awake, obese, uncomfortable, 19:11 Musculoskeletal/extremity: Joints: the right hip displays pain at rest, painful range of motion, tenderness, Weight bearing: able to fully bear weight, limps, Vital Signs: 18:14 BP 157 / 104; Pulse 73; Resp 16; Pulse Ox 100% on R/A; Weight 131.54 kg; Height 5 ft. 5 iw in. ; Pain 8/10; 19:22 BP 155 / 80; Pulse 68; Resp 20; Pulse Ox 100% ; kj2 21:31 BP 140 / 73; Pulse 64; Resp 20; Temp 98; Pulse Ox 100% ; kj2 22:18 BP 138 / 74; Pulse 68; Resp 20; Temp 98; Pulse Ox 100% on R/A; kj2 18:14 Body Mass Index 48.26 (131.54 kg, 165.1 cm) iw 18:14 Pain Scale: Adult iw MDM: 18:13 Medical Screening Exam initiated sb4 21:04 Differential diagnosis: hip fracture, intertrochanteric fracture, femoral neck sb4 fracture, femoral shaft fracture, bursitis, arthritis, strain. Data reviewed: vital signs, nurses notes, radiologic studies, and as a result, I will discharge patient. Counseling: I had a detailed discussion with the patient and/or guardian regarding the historical points, exam findings, and any diagnostic results supporting the discharge/admit diagnosis, radiology results, the need for outpatient follow up, a orthopedic surgeon, to return to the emergency department if symptoms worsen or persist or if there are any questions or concerns that arise at home. 10/16 18:24 Order name: CT Pelvis wo Cont; Complete Time: 22:15 sb4 Administered Medications: 19:22 Drug: Acetaminophen-Codeine PO (300 mg-30 mg) 2 tabs PO once; RASS on ADMIN: Combtv4, kj2 Very Agttd3, Agttd2, Rstlss1, AlertClm0, Drwsy-1, Lt Sdtn-2, Mod Sdtn-3, Dp Sdtn-4, UnArsble-5 Route: PO; 22:22 Follow up: Response: No adverse reaction kj2 19:22 Drug: Ondansetron Oral Disintegrating Tablet Oral Disintegrating Tablet 4 mg PO once kj2 Route: PO; 22:22 Follow up: Response: No adverse reaction kj2 19:22 Drug: Dexamethasone IM 10 mg IM once Route: IM; Site: right deltoid; kj2 22:22 Follow up: Response: No adverse reaction kj2 21:33 Drug: morphine IM 4 mg IM once Route: IM; Site: left deltoid; kj2 22:22 Follow up: Response: No adverse reaction kj2 21:33 Drug: Ketorolac IM 30 mg IM once Route: IM; Site: right deltoid; kj2 22:21 Follow up: Response: No adverse reaction kj2 21:33 Drug: Gabapentin PO 300 mg PO once Route: PO; kj2 22:21 Follow up: Response: No adverse reaction kj2 Disposition: 21:03 I was immediately available on-site in the Emergency Department for consultation in the ms3 care of the patient. Disposition Summary: 10/16/24 22:10 Discharge Ordered Notes: Location: Home sb4 Problem: new sb4 Symptoms: have improved sb4 Condition: Stable sb4 Diagnosis - Pain in right hip sb4 Followup: sb4 - With: Mu Mitchell MD - When: 1 week - Reason: Recheck today's complaints, Re-evaluation by your physician Discharge Instructions: - Discharge Summary Sheet sb4 - Musculoskeletal Pain sb4 - Pain Without a Known Cause sb4 - Hip Pain sb4 Forms: - Patient Portal Instructions sb4 - Leadership Thank You Letter sb4 Prescriptions: - gabapentin 300 mg Oral capsule - take 1 capsule ORAL route 2 times per day; 30 capsule; Refills: 0, Product sb4 Selection Permitted - Diclofenac Sodium 75 mg Oral Tablet Sustained Release - take 1 tablet ORAL route 2 times per day; 30 tablet; Refills: 0, Product sb4 Selection Permitted - methocarbamol 750 mg Oral tablet - take 1 tablet ORAL route every 4 hours; 20 tablet; Refills: 0, Product sb4 Selection Permitted Signatures: Dispatcher [employer] Elaina Bingham, RN Selvin Hinkle DO DO ms3 Liza Alvares PA-C PA-C sb4 Lianne Ferrera RN RN kj2 Corrections: (The following items were deleted from the chart) 19:12 19:11 Musculoskeletal/extremity: Joints: the right hip displays pain at rest, painful sb4 range of motion, tenderness, sb4
[2024-10-16 22:37] VITALS: O2SAT 100
[2024-10-16 22:40] VITALS: TEMP 98
[2024-10-16 22:42] VITALS: BP 138/74
== END 2024-10-16 22:32 | disposition home or self-care (01) ==
LOC: ER 17:42
DX: M25.551 Pain in right hip (principal)
CPT/HCPCS: 72192; 96372; 99284; Q0162; J1100

== ENCOUNTER 2024-10-21 08:15 | Emergency (ER) | payer OTHER ==
[2024-10-21] MEDS ORDERED: ONDANSETRON 4 MG/2 ML VIAL ONE (09:13)
[2024-10-21] MEDS ORDERED: MORPHINE 4 MG/ML SYR ONE ×2 (09:14→10:22)
[2024-10-21] MEDS ORDERED: KETOROLAC 30 MG/ML INJ ONE (09:14)
[2024-10-21 09:35] LABS: Absolute Basophils 0.1 K/uL (0-0.5); Absolute Eosinophils 0.1 K/uL (0-0.5); Absolute Monocytes 0.5 K/uL (0.1-1.3); Absolute Neutrophil 6.6 K/uL (1.8-8.0); Basophils % 0.5 % (0-1.3); Eosinophils % 1.3 % (0-4.4); Hematocrit 42.1 % (36.0-45.0); Lymphocytes % 21.4 % (15.3-44.8); MCHC 35.6 g/dL (32.0-36.0); MPV 7.3 fL (7.6-11.3); Monocytes % 5.3 % (3.3-12.3); Neutrophils % 71.5 % (41.7-73.7); Nucleated Red Blood Cells % 0.1 % (0-0); Platelets 298 thou/uL (152-406); RBC Red Blood Cell Count 4.83 M/uL (3.86-4.86); Red Cell Distribution Width 14.2 % (12.1-15.2)
[2024-10-21 10:05] LABS: Albumin 3.4 g/dL (3.4-5.0); Albumin/Globulin Ratio 0.8 (1.1-1.8); Anion Gap 9.8 mEq/L (5.0-15.0); Bilirubin Total 1.1 mg/dL (0.2-1.0); Globulin 4.5 g/dL (2.3-3.5); Potassium 3.8 mEq/L (3.5-5.1); Protein, Total 7.9 g/dL (6.4-8.2)
[2024-10-21 10:11] LABS: Specific Gravity 1.013 (1.005-1.030); Urine Bilirubin NEGATIVE (Negative); Urine Blood Negative (Negative); Urine Clarity Clear (Clear); Urine Color Light-Yellow (Yellow); Urine Glucose NEGATIVE (Negative); Urine Ketones NEGATIVE (Negative); Urine Microscopic Reflex YN NO UMIC; Urine Nitrite NEGATIVE (Negative); Urine Protein NEGATIVE (Negative); Urine Urobilinogen Normal (Normal); Urine pH 6.5 (5.0-7.0)
--- NOTE | 2024-10-21 10:40 | RAD REPORT ---
EXAMINATION: Abdomen Pelvis W Contrast CLINICAL INDICATION: Female, 59 years old.ABD PAIN TECHNIQUE: CT abdomen and pelvis was performed, after the administration of IV contrast, as per depar tment protocol. Axial, sagittal and coronal reconstructions were obtained. One or more of the following dose reduction techniques were used: Automated exposure control, adjustment of the mA and/o r kV according to patient size, and/or iterative reconstruction. Unless otherwise specified, incidental findings do not require dedicated imaging follow-up. [id number]. COMPARISON: CT pelvis 10/16/2024 FINDINGS: LOWER CHEST: No acute process identified.No significant pericardial effusion. UPPER GI: No significant abnormality. LIVER: Intrahepatic biliary duct dilatation which is mild. No focal mass. GALLBLADDER/BILE DUCTS: Cholecystectomy. Mild extra-hepatic biliary ductal dilatation is likely relat ed to the post-cholecystectomy state. Consider correlating with LFT's.? PANCREAS: No mass, ductal dilation, or halley-pancreatic fluid. SPLEEN: Unremarkable. ADRENALS: No adrenal masses. KIDNEYS AND URETERS: No hydronephrosis.No suspicious renal mass.No renal calculi. ABDOMINAL AORTA AND OTHER VESSELS: Normal caliber aorta and IVC. PERITONEUM: No abnormal free fluid. No free air. LYMPH NODES: No pathologic lymphadenopathy. ABDOMINAL WALL: Unremarkable SMALL BOWEL/COLON: Small bowel has normal course and caliber. No colonic wall thickening or pericolon ic inflammatory changes.Appendix absent. Mild diverticulosis without diverticulitis. URINARY BLADDER: Underdistended but grossly unremarkable. REPRODUCTIVE ORGANS: No pathologic process. MUSCULOSKELETAL: No acute or suspicious osseous abnormality. ADDITIONAL FINDINGS: None. IMPRESSION: No acute findings within the abdomen or pelvis. No urinary tract calculi, bowel obstruction, or appen dicitis.
--- NOTE | 2024-10-21 11:40 | ER ---
Nurse's Notes [facility] Name: Alize Trinidad Age: 59 yrs Sex: Female : 1965 Arrival Date: 10/21/2024 Time: 08:15 Bed 13 Private MD: Diagnosis: Pain in right hip Presentation: 10/21 08:34 Chief complaint: Patient states: was seen here last week for right hip pain , pain has iw worsened and now radiates into right groin. Coronavirus screen: At this time, the client does not indicate any symptoms associated with coronavirus-19. Ebola Screen: No symptoms or risks identified at this time. Initial Sepsis Screen: Does the patient meet any 2 criteria? No. Patient's initial sepsis screen is negative. Does the patient have a suspected source of infection? No. Patient's initial sepsis screen is negative. Risk Assessment: Do you want to hurt yourself or someone else? Patient reports no desire to harm self or others. 08:34 Method Of Arrival: Wheelchair iw 08:34 Acuity: FAVIAN 3 iw Historical: - Allergies: 08:36 Hydrocodone-Acetaminophen; iw 08:36 Levaquin; iw 08:36 PENICILLINS; iw - PMHx: 08:36 Hypertension; Fibromyalgia; Rheumatoid Arthritis; iw - PSHx: 08:36 Appendectomy; section; Cholecystectomy; hernia surgery; hysterectomy; iw Oophorectomy; - Immunization history:: Adult Immunizations not up to date. - Infectious Disease History:: Denies. - Social history:: Smoking status: Patient denies any tobacco usage or history of. - Family history:: not pertinent. Screenin:29 [facility] ED Fall Risk Assessment (Adult) History of falling in the last 3 months, ld1 including since admission No falls in past 3 months (0 pts) Confusion or Disorientation No (0 pts) Intoxicated or Sedated No (0 pts) Impaired Gait No (0 pts) Mobility Assist Device Used No (0 pt) Altered Elimination No (0 pt) Score/Fall Risk Level 0 - 2 = Low Risk Oriented to surroundings, Hourly rounding (assess needs \T\ fall precautionary measures) done. Abuse screen: Denies threats or abuse. Denies injuries from another. Nutritional screening: No deficits noted. Tuberculosis screening: No symptoms or risk factors identified. Assessment: 09:29 General: Appears in no apparent distress. comfortable, Behavior is calm, cooperative, ld1 appropriate for age. Pain: Complains of pain in abdomen Pain does not radiate. Pain currently is 8 out of 10 on a pain scale. Quality of pain is described as throbbing, Pain began suddenly, Is continuous. Neuro: Level of Consciousness is awake, alert, obeys commands, Oriented to person, place, time, situation. Cardiovascular: Capillary refill < 3 seconds Patient's skin is warm and dry. Respiratory: Airway is patent Respiratory effort is even, unlabored. GI: Abdomen is round non-distended, Bowel sounds present X 4 quads. Abd is soft Abd is non tender Reports lower abdominal pain, upper abdominal pain. : No signs and/or symptoms were reported regarding the genitourinary system. EENT: No signs and/or symptoms were reported regarding the EENT system. Derm: No signs and/or symptoms reported regarding the dermatologic system. Musculoskeletal: No signs and/or symptoms reported regarding the musculoskeletal system. 12:12 Reassessment: Patient appears in no apparent distress at this time. No changes from ld1 previously documented assessment. Patient and/or family updated on plan of care and expected duration. Pain level reassessed. Patient is alert, oriented x 3, equal unlabored respirations, skin warm/dry/pink. Vital Signs: 08:34 BP 158 / 74; Pulse 80; Resp 16; Temp 98; Pulse Ox 100% on R/A; Weight 133.81 kg; Height iw 5 ft. 5 in. ; Pain 9/10; 09:29 BP 156 / 106; Pulse 66; Resp 18; Pulse Ox 97% on R/A; Pain 8/10; ld1 10:33 BP 124 / 56; Pulse 61; Resp 18; Pulse Ox 96% on R/A; Pain 9/10; ld1 12:12 BP 128 / 61; Pulse 78; Resp 18; Pulse Ox 100% on R/A; ld1 08:34 Body Mass Index 49.09 (133.81 kg, 165.1 cm) iw 08:34 Pain Scale: Adult iw 09:29 Pain Scale: Adult ld1 10:33 Pain Scale: Adult ld1 ED Course: 08:18 Patient arrived in ED. cj3 08:35 Triage completed. iw 08:36 Arm band placed on. iw 08:37 Shorty Ram MD is Attending Physician. rt 09:09 Amara Parra RN is Primary Nurse. ld1 09:28 Inserted saline lock: 20 gauge in right antecubital area, using aseptic technique. ld1 Blood collected. Flushed with 10 mL NS. 09:29 Patient has correct armband on for positive identification. Placed in gown. Bed in low ld1 position. Call light in reach. Side rails up X2. Pulse ox on. NIBP on. Door closed. Noise minimized. Warm blanket given. 09:29 No provider procedures requiring assistance completed. ld1 10:24 CT Abd/Pelvis - IV Contrast Only In Process Unspecified. EDMS 12:13 IV discontinued, intact, bleeding controlled, No redness/swelling at site. ld1 Administered Medications: 09:28 Drug: TORadol - Ketorolac IVP 15 mg IVP once Route: IVP; Site: right antecubital; ld1 09:56 Follow up: Response: No adverse reaction ld1 09:28 Drug: Ondansetron IVP 4 mg IVP once; over 2 minutes Route: IVP; Site: right antecubital;ld1 09:56 Follow up: Response: No adverse reaction ld1 09:28 Drug: morphine IVP or IV 4 mg IVP once over 4 mins Route: IVP; Infused Over: 4 mins; ld1 Site: right antecubital; 09:57 Follow up: Response: No adverse reaction ld1 10:29 Drug: morphine IVP or IV 4 mg IVP once over 4 mins Route: IVP; Infused Over: 4 mins; ld1 Site: right antecubital; Medication: 09:29 VIS not applicable for this client. ld1 Outcome: 11:39 Discharge ordered by . rt 12:12 Discharged to home ambulatory, with family, ld1 12:12 Condition: stable 12:12 Discharge instructions given to patient, Instructed on discharge instructions, follow up and referral plans. medication usage, Demonstrated understanding of instructions, follow-up care, medications, Prescriptions given X 1, 12:14 Patient left the ED. ld1 Signatures: Dispatcher [employer] EDMS Elaina Marley RN RN iw Amara Parra RN RN ld1 Shorty Ram MD MD rt Lakshmi Castelan 3 Corrections: (The following items were deleted from the chart) 09:56 09:28 UA W/ Microscopic+[email or web address] drawn and sent. ld1 EDMS
--- NOTE | 2024-10-21 11:40 | EDPHYS ---
Physician Documentation [facility] Name: Alize Trinidad Age: 59 yrs Sex: Female : 1965 Arrival Date: 10/21/2024 Time: 08:15 Bed 13 Private MD: ED Physician Shorty Ram HPI: 10/21 10:07 This 59 yrs old Female presents to ER via Wheelchair with complaints of Hip Pain - RT, rt Abdominal Pain - Lower RT. 10:07 Patient was seen recently for a right hip pain, had a negative CT, states that the rt symptoms have not improved, states that today, she felt a tearing sensation to her right lower quadrant of her abdomen, denies other acute complaints at this time, states that the pain has worsened. Symptoms are moderate in severity, no other aggravating or alleviating factors.. Historical: - Allergies: 08:36 Hydrocodone-Acetaminophen; iw 08:36 Levaquin; iw 08:36 PENICILLINS; iw - PMHx: 08:36 Hypertension; Fibromyalgia; Rheumatoid Arthritis; iw - PSHx: 08:36 Appendectomy; section; Cholecystectomy; hernia surgery; hysterectomy; iw Oophorectomy; - Immunization history:: Adult Immunizations not up to date. - Infectious Disease History:: Denies. - Social history:: Smoking status: Patient denies any tobacco usage or history of. - Family history:: not pertinent. ROS: 10:07 Constitutional: Negative for fever, chills, and weight loss, Cardiovascular: Negative rt for chest pain, palpitations, and edema, Respiratory: Negative for shortness of breath, cough, wheezing, and pleuritic chest pain, Skin: Negative for injury, rash, and discoloration, Neuro: Negative for headache, weakness, numbness, tingling, and seizure, 10:07 Abdomen/GI: Positive for abdominal pain, Negative for nausea and vomiting, 10:07 MS/extremity: Positive for pain, Negative for injury or acute deformity, Exam: 10:07 Constitutional: This is a well developed, well nourished patient who is awake, alert, rt and in no acute distress. Head/Face: Normocephalic, atraumatic. Chest/axilla: Normal chest wall appearance and motion. Nontender with no deformity. No lesions are appreciated. Cardiovascular: Regular rate and rhythm with a normal S1 and S2. No gallops, murmurs, or rubs. Normal PMI, no JVD. No pulse deficits. Respiratory: Lungs have equal breath sounds bilaterally, clear to auscultation and percussion. No rales, rhonchi or wheezes noted. No increased work of breathing, no retractions or nasal flaring. Skin: Warm, dry with normal turgor. Normal color with no rashes, no lesions, and no evidence of cellulitis. MS/ Extremity: Pulses equal, no cyanosis. Neurovascular intact. Full, normal range of motion. Neuro: Awake and alert, GCS 15, oriented to person, place, time, and situation. Cranial nerves II-XII grossly intact. Motor strength 5/5 in all extremities. Sensory grossly intact. Cerebellar exam normal. Normal gait. 10:07 Abdomen/GI: Tenderness to the right lower quadrant without rebound, guarding, distention, Vital Signs: 08:34 BP 158 / 74; Pulse 80; Resp 16; Temp 98; Pulse Ox 100% on R/A; Weight 133.81 kg; Height iw 5 ft. 5 in. ; Pain 9/10; 09:29 BP 156 / 106; Pulse 66; Resp 18; Pulse Ox 97% on R/A; Pain 8/10; ld1 10:33 BP 124 / 56; Pulse 61; Resp 18; Pulse Ox 96% on R/A; Pain 9/10; ld1 12:12 BP 128 / 61; Pulse 78; Resp 18; Pulse Ox 100% on R/A; ld1 08:34 Body Mass Index 49.09 (133.81 kg, 165.1 cm) iw 08:34 Pain Scale: Adult iw 09:29 Pain Scale: Adult ld1 10:33 Pain Scale: Adult ld1 MDM: 08:42 Medical Screening Exam initiated rt 13:54 Differential diagnosis: Obstruction, arthritis, radicular pain. Data reviewed: vital rt signs, nurses notes, lab test result(s), radiologic studies. I considered the following discharge prescriptions or medication management in the emergency department Medications were administered in the Emergency Department. See MAR. Independent interpretation of the following test(s) in the Emergency Department CT Scan: My interpretation is No bowel obstruction syndrome interpretation of CT scan images. Test considered but Not performed: X-ray: CT scan obtained, x-rays redundant. Care significantly affected by the following chronic conditions: Hypertension. Counseling: I had a detailed discussion with the patient and/or guardian regarding the historical points, exam findings, and any diagnostic results supporting the discharge/admit diagnosis, lab results, radiology results, the need for outpatient follow up. Response to treatment: the patient's symptoms have markedly improved after treatment. 10/21 08:53 Order name: CBC with Diff; Complete Time: 10:22 rt 10/21 08:53 Order name: CMP; Complete Time: 10:22 rt 10/21 08:53 Order name: Lipase; Complete Time: 10:22 rt 10/21 09:36 Order name: UA Rfx Greg Cult if indicated; Complete Time: 10:22 rt 10/21 08:53 Order name: CT Abd/Pelvis - IV Contrast Only; Complete Time: 10:44 rt 10/21 08:53 Order name: IV Saline Lock; Complete Time: 09:09 rt 10/21 08:53 Order name: Labs collected and sent; Complete Time: 09:28 rt Administered Medications: 09:28 Drug: TORadol - Ketorolac IVP 15 mg IVP once Route: IVP; Site: right antecubital; ld1 09:56 Follow up: Response: No adverse reaction ld1 09:28 Drug: Ondansetron IVP 4 mg IVP once; over 2 minutes Route: IVP; Site: right antecubital;ld1 09:56 Follow up: Response: No adverse reaction ld1 09:28 Drug: morphine IVP or IV 4 mg IVP once over 4 mins Route: IVP; Infused Over: 4 mins; ld1 Site: right antecubital; 09:57 Follow up: Response: No adverse reaction ld1 10:29 Drug: morphine IVP or IV 4 mg IVP once over 4 mins Route: IVP; Infused Over: 4 mins; ld1 Site: right antecubital; Disposition Summary: 10/21/24 11:39 Discharge Ordered Notes: Location: Home rt Problem: an ongoing problem rt Symptoms: have improved rt Condition: Stable rt Diagnosis - Pain in right hip rt Followup: rt - With: Private Physician - When: 2 - 3 days - Reason: Discharge Instructions: - Discharge Summary Sheet rt - Hip Pain rt Forms: - Medication Reconciliation Form rt - Antibiotic Education rt - Prescription Opioid Use rt - Patient Portal Instructions rt - Leadership Thank You Letter rt Prescriptions: - Medrol (Jigar) 4 mg Oral Tablets, Dose Pack - take 1 tablet ORAL route as directed - follow package instructions; 1 packet; rt Refills: 0, Product Selection Permitted - Tylenol-Codeine #3 300mg-30mg Oral tablet - take 2 tablets ORAL route every 6 hours As needed; 18 tablet; Refills: 0, rt Product Selection Permitted Signatures: Dispatcher [employer] Elaina Bingham RN RN iw Amara Parra RN RN ld1 Shorty Ram MD MD rt Corrections: (The following items were deleted from the chart) 09:56 08:53 UA W/ Microscopic+U.LAB.BRZ ordered. EDMS EDMS
[2024-10-21 12:24] VITALS: TEMP 98
[2024-10-21 12:29] VITALS: BP 128/61; O2SAT 100
== END 2024-10-21 12:14 | disposition home or self-care (01) ==
LOC: ER 08:15
DX: M25.551 Pain in right hip (principal); R10.31 Right lower quadrant pain
CPT/HCPCS: 85025; 36415; 81003; 83690; 80053; 74177; Q9967; J2405; 96374; 96375; 99284